=== PATIENT | female | born 1955 | race Caucasian/White ===

== ENCOUNTER 2021-05-04 09:01 | Outpatient (CLI) | payer MEDICARE, SELFPAY ==
--- NOTE | ~2021-05-04 | MM_ITS ---
EXAMINATION: MM screening [facility] BI w stevo HISTORY: Screening mammogram TECHNIQUE: Craniocaudal and mediolateral oblique 3-D tomosynthesis images were obtained and synthetic 2-D images were generated. CAD analysis was submitted and interpreted. COMPARISON: 10/23/2018, 09/25/2017, 09/18/2017 BREAST PARENCHYMAL COMPOSITION: There are scattered areas of fibroglandular density. FINDINGS: RIGHT BREAST: There are indeterminate calcifications anterior third of inner breast. LEFT BREAST: There is no suspicious mass, calcification, or architectural distortion to suggest malig yamile. There has been no significant interval change. IMPRESSION: 1. Indeterminate right breast calcifications. 2. Magnification views are recommended. BI-RADS Category 0: Incomplete: Needs additional imaging evaluation. Reviewed, dictated and finalized at location A.
== END 2021-05-04 09:02 | disposition home or self-care (01) ==
LOC: ANHIMG 09:03
PROVIDERS: PCP Nurse Practitioner Adult Health; Visit Provider Nurse Practitioner Adult Health
DX: Z12.31 Encounter for screening mammogram for malignant neoplasm of breast (principal); R92.8 Other abnormal and inconclusive findings on diagnostic imaging of breast
CPT/HCPCS: 77063; 77067

== ENCOUNTER 2021-05-17 11:28 | Outpatient (CLI) | payer MEDICARE, SELFPAY ==
--- NOTE | ~2021-05-17 | MM_ITS ---
EXAMINATION: MM diagnostic mammo unilat RT HISTORY: Right breast calcifications on screening mammogram TECHNIQUE: Additional views of the right breast were performed and synthetic 2-D images were generate d. CAD analysis was submitted and interpreted. COMPARISON: 05/04/2021, 10/23/2018 FINDINGS: There are coarse heterogeneous calcifications in a linear distribution at the 4:00 location in the anterior third of the breast between 2 cm and 5 cm from the nipple. IMPRESSION: 1. Indeterminate right breast calcifications. 2. Stereotactic right breast biopsy is recommended. BI-RADS category 4, suspicious findings. Reviewed, dictated and finalized at location A.
== END 2021-05-17 11:29 | disposition home or self-care (01) ==
PROVIDERS: PCP Nurse Practitioner Adult Health; Visit Provider Nurse Practitioner Adult Health
DX: R92.8 Other abnormal and inconclusive findings on diagnostic imaging of breast (principal)
CPT/HCPCS: 77065

== ENCOUNTER 2021-06-04 10:46 | Outpatient (CLI) | payer MEDICARE, SELFPAY ==
--- NOTE | ~2021-06-04 | DEXA_ITS ---
Bone Density Report Name: AVNI KIRKLAND Age: 66 Sex: Female Ethnicity: White Date of : 1955 Indication: postmenopausal; screening for osteoporosis; Referring Provider: LIN, ANNETTE Study: Bone densitometry was performed. Exam Date: June 04, 2021 Accession number: [id number] Bone Density: Region BMD T-score Z-score Classification AP Spine(L1-L4) 1.136 0.8 2.7 Normal Femoral Neck (Left) 0.696 -1.4 0.3 Osteopenia Total Hip (Left) 0.875 -0.6 0.8 Normal Femoral Neck (Right) 0.714 -1.2 0.4 Osteopenia Total Hip (Right) 0.919 -0.2 1.2 Normal Total Hip Mean 0.897 -0.4 1.0 Normal World Health Organization criteria for BMD impression classify patients as: Normal (T-score at or above -1.0), Osteopenia (T-score between -1.0 and -2.5), or Osteoporosis (T-score at or below -2.5). 10-year Fracture Risk(1): Major Osteoporotic Fracture 9.0% Hip Fracture 0.9% Reported Risk Factors: [place] (), Neck BMD=0.696, BMI=26.7 (1) FRAX(R) Version 3.08. Fracture probability calculated for an untreated patient. Fracture probability may be lower if the patient has received treatment. Previous Exams: Region Exam Age BMD T-score BMD Change BMD Change Date g/cm2 vs Baseline vs Previous AP Spine(L1-L4) 06/04/2021 66 1.136 0.8 0.014(1.3%) 0.014(1.3%) 08/19/2015 60 1.122 0.7 Total Hip(Left) 06/04/2021 66 0.875 -0.6 -0.029(-3.3%)* -0.029(-3.3%)* 08/19/2015 60 0.904 -0.3 Total Hip(Right) 06/04/2021 66 0.919 -0.2 -0.027(-2.8%) -0.027(-2.8%) 08/19/2015 60 0.946 0.0 *Denotes significance at 95% confidence level, LSC for AP Spine = 0.022 g/cm2, LSC for Total Hip = 0.027 g/cm2 Clinical Information Provided by Patient: Patient maximum height was 70 Menopause Age: 51 Drinks caffeinated beverages Onset of menses at age 11 Number of children 2 Impression: The patient has low bone mass, based on the Left Femoral Neck T-score. The patient has an estimated ten-year risk of hip fracture of 0.9% and an estimated ten-year risk of major fracture of 9%, based on the WHO FRAX algorithm. The BMD for the Total Hip(Left) decreased, changing by -3.3% since the last DXA exam. Discussion: BONE DENSITY IS LOW AT ONE OR MORE SKELETAL SITES. This patient's lowest T-score is low at one or more skeletal sites. It meets the World Health Organization's (WHO) criteria for ?low bone mass? (T-score between -1.0 and -2
== END 2021-06-04 10:47 | disposition home or self-care (01) ==
LOC: ANHIMG 10:51
PROVIDERS: PCP Nurse Practitioner Adult Health; Visit Provider Nurse Practitioner Adult Health
DX: Z78.0 Asymptomatic menopausal state (principal); M85.852 Other specified disorders of bone density and structure, left thigh; M85.851 Other specified disorders of bone density and structure, right thigh
CPT/HCPCS: 77080

== ENCOUNTER 2023-03-02 08:04 | Outpatient (CLI) | payer MEDICARE, SELFPAY ==
--- NOTE | ~2023-03-02 | US_ITS ---
Limited Abdominal Sonogram: Real-time sonographic imaging of the right upper quadrant was performed. Clinical History: Right upper quadrant pain Findings: The liver appears echogenic, with no evidence of mass lesion or bile duct dilatation. Main portal vein demonstrates normal direction of flow. The gallbladder is well distended, and appears no rmal with no evidence of gallstone or wall thickening. The common bile duct measures 3 mm. The visua lized pancreas, aorta, and IVC are unremarkable. Impression: Diffuse fatty infiltration of liver. Reviewed, dictated and finalized at location M. LRY SALES REPRESENTATIVE Impression: Diffuse fatty infiltration of liver.
--- NOTE | ~2023-03-02 | XR_ITS ---
EXAM: XR abdomen/kub 1V DATE: 03/02/2023 08:33 HISTORY: RUQ PAIN FOR SEVERAL MONTHS . COMPARISON: Ultrasound abdomen Limited 03/02/2023. FINDINGS: Clear lung bases. Normal bowel gas pattern. Enlarged liver. No abnormal abdominal calcific ation. Lumbar degenerative disc disease. Mild thoracolumbar scoliosis. Moderate osteitis pubis. Pelvi c phleboliths. IMPRESSION: Hepatomegaly. Reviewed, dictated and finalized at location K. GE KNOTTER IMPRESSION: Hepatomegaly.
== END 2023-03-02 08:05 | disposition home or self-care (01) ==
PROVIDERS: PCP Family Medicine; Visit Provider Family Medicine
DX: K76.0 Fatty (change of) liver, not elsewhere classified (principal)
CPT/HCPCS: 74018; 76705

== ENCOUNTER 2023-05-16 10:05 | Outpatient (CLI) | payer MEDICARE, SELFPAY ==
[2023-05-16 12:14] LABS: Alanine Aminotransferase 29 U/L (6-35); Albumin Level 4.3 g/dL (3.5-5.1); Alkaline Phosphatase 61 U/L (38-126); Aspartate Amino Transferase 38 U/L (14-36); Bilirubin,Total 1.2 mg/dL (0.2-1.3)
[2023-05-16 12:17] LABS: INR 0.9; Prothrombin Time 12.6 Seconds (11.1-14.7)
[2023-05-16 12:25] LABS: Iron 173 ug/dL (37-170)
[2023-05-16 12:37] LABS: Percent Iron Saturation 63 % (20-50)
[2023-05-19 10:56] LABS: Alpha-1-Antitrypsin, QN 131 mg/dL (83-199); Ceruloplasmin 29 mg/dL (18-53)
[2023-05-20 04:16] LABS: Hepatitis A Antibody Total Nonreactive (Nonreactive)
[2023-05-20 12:21] LABS: Actin Antibody (IgG) <20 U (<20)
[2023-05-20 15:58] LABS: GGT 21 U/L (3-65)
[2023-05-22 13:03] LABS: LKM 1 Antibody <=20.0 U (<=20.0)
[2023-05-22 20:52] LABS: Mitochondrial (M2) Ab (IgG) <=20.0 U (<=20.0)
[2023-05-26 14:47] LABS: ALT 23 U/L (6-29); Alpha-2-Macroglobulin 182 mg/dL (106-279); Apolipoprotein A1 229 mg/dL (101-198); Fibrosis Score 0.11; Fibrosis Stage F0; GGT 21 U/L (3-65); Haptoglobin 112 mg/dL (43-212); Necroinflammat Act Grade A0; Total Bilirubin 0.6 mg/dL (0.2-1.2)
== END 2023-05-16 10:06 | disposition home or self-care (01) ==
LOC: ANHLAB 10:11
PROVIDERS: PCP Family Medicine; Visit Provider Nurse Practitioner Family
DX: R74.01 Elevation of levels of liver transaminase levels (principal); K76.0 Fatty (change of) liver, not elsewhere classified
CPT/HCPCS: 36415; 80076; 81596; 82103; 82390; 82728; 82977; 83520; 83540; 83550; 85610; 86038; 86364; 86376; 86708

== ENCOUNTER 2023-05-30 07:00 | Outpatient (NON) | payer MEDICARE, SELFPAY | END 2023-05-30 07:01 | disposition home or self-care (01) | PROVIDERS: PCP Family Medicine; Visit Provider Internal Medicine Gastroenterology | DX: K20.0 Eosinophilic esophagitis (principal) | CPT/HCPCS: 88305 ==

== ENCOUNTER 2023-05-30 09:29 | Day surgery (SDC) | payer MEDICARE, SELFPAY ==
[2023-05-24 13:55] VITALS: BMI 27.8
[2023-05-25 12:11] VITALS: BMI 27.1
--- NOTE | 2023-05-30 07:43 | P.PNAN_ITS ---
Anes - Initial Pre Proc Eval Procedure: Operation Date: 05/30/23 12:30 Proposed Procedures p Esophagogastroduodenoscopy - Godwin Reese MD Date/Time: 05/30/23 07:43 Surgeon: Godwin Reese MD Pre Op Diagnosis: Right upper quadrant pain Patient Data Age: 68 Gender: F Height: 1.78 m Weight: 86 kg Allergies Allergy/AdvReac Type Severity Reaction Status Date / Time Sulfa (Sulfonamide Allergy Mild HIVES Verified 05/30/23 11:24 Antibiotics) Home Medications Medication Instructions Recorded Confirmed Type cholecalciferol (vitamin D3) 25 25 mcg PO WEEKLY 05/16/23 05/30/23 History mcg (1,000 unit) capsule cyanocobalamin (vitamin B-12) 1,000 mcg PO DAILY 05/16/23 05/30/23 History 1,000 mcg capsule Patient hx anesthesia problems: none Family hx anesthesia problems: none Results Review: All pre-operative results and documents have been reviewed as part of the pre- operative evaluation. [facility] Past Medical History Medical History (Updated 05/30/23 @ 11:42 by Larry Hartman DO) Elevated transaminase level Fatty liver History of breast cancer History of difficult intubation Right upper quadrant pain Surgical History Surgical History (Updated 05/30/23 @ 07:44 by Larry Hartman DO) History of appendectomy History of tubal ligation Family History Family History (System 05/18/21 @ 11:44 by Jewell Flood) Mother Diabetes mellitus Father Hypertension Family history of cardiovascular disease Father Hypertension Family history of chronic obstructive pulmonary disease Family history of coronary artery disease Sibling Hypertension Mother Family history of congenital heart disease Family history of coronary artery disease Family history of type 2 diabetes mellitus Other Family history of heart disease in male family member before age 55 Social History Social History (System 05/18/21 @ 11:44 by Jewell Flood) Smoking status: Never smoker Second hand tobacco smoke exposure: No Smoking end date: 02/19/74 Alcohol intake: current Substance use: never Substance use type: does not use Living arrangements: with family Spiritual care concerns: No Anes - Eval Final PreProcedure Day of Procedure 05/30/23 07:43 Patient weight: overweight Heart: regular rate and rhythm Lungs: clear to auscultation Airway: Mallampati scale class II Neurological: alert and oriented Last oral intake: >/= 8 hours ASA classification: II Emergent: no Anesthetic plan: proceed Anesthesia type and monitoring: general GIVS and standard monitoring Results Review: All pre-operative results and documents have been reviewed as part of the pre- operative evaluation. Informed Consent: The patient's anesthetic plan and its attendant risks and benefits were discussed with the patient/family/POA. Questions were solicited and answers provided to the satisfaction of the patient/family/POA.
[2023-05-30 11:26] VITALS: BP 158/102; PULSE 66; RESP 18; TEMP 36.3; O2SAT 99; BMI 27.5
--- NOTE | 2023-05-30 11:35 | WPDHPUPDATE1 ---
History and Physical Update Update Date/Time: 05/30/23 11:35 History and Physical has been reviewed, including an updated exam of the patient. There are NO changes in the patient's condition. Risks, benefits, and alternatives have been discussed and questions answered. Patient agrees to proceed with procedure.
[2023-05-30] MEDS: LACTATED RINGERS 1,000 ML 150 ML IV CONT (11:37)
[2023-05-30 12:17] VITALS: BP 141/89; PULSE 72; RESP 16; O2SAT 100
[2023-05-30 12:27] VITALS: BP 121/69; PULSE 70; RESP 16; O2SAT 100
[2023-05-30 12:37] VITALS: BP 137/89; PULSE 67; RESP 16; O2SAT 97
--- NOTE | 2023-05-30 12:45 | WPDANESPN ---
Anes - Prog Note Post-Op Date/Time: 05/30/23 12:45 Cardiovascular status: normal Respiratory status: normal Airway patency: baseline Mental status: baseline Post-Op hydration status: normal Vital Signs: Last Vital Signs Temp 36.3 C L 05/30/23 11:26 Pulse 72 05/30/23 12:17 Resp 16 05/30/23 12:17 BP 141/89 H 05/30/23 12:17 Pulse Ox 100 05/30/23 12:17 O2 Del Method Room Air 05/30/23 12:17 Pain Score (VAS): 0 I/O: Intake & Output 05/29/23 05/30/23 05/30/23 23:59 07:59 15:59 Intake Total 0 Balance 0 Post-procedural complaints: none Patient Feedback: Patient satisfied with anesthetic care. Other Findings: Patient vital signs back to baseline. Patient denies nausea and vomiting. Patient's pain under control. Patient OK for discharge.
== END 2023-05-30 13:00 | disposition home or self-care (01) ==
PROVIDERS: PCP Family Medicine; Visit Provider Internal Medicine Gastroenterology
PROC: 0DJ08ZZ Inspection of Upper Intestinal Tract, Via Natural or Artificial Opening Endoscopic (ICD-10-PCS; CPT 43235; principal; 2023-05-30 12:30)
DX: R10.11 Right upper quadrant pain (principal); K20.80 Other esophagitis without bleeding; K44.9 Diaphragmatic hernia without obstruction or gangrene
CPT/HCPCS: 43239

== ENCOUNTER 2023-06-04 18:02 | Emergency (ER) | payer MEDICARE, SELFPAY ==
--- NOTE | ~2023-06-04 | XR_ITS ---
EXAMINATION: XR humerus LT DATE: 06/04/2023 18:40 INDICATION: Left upper arm pain. Fall. TECHNIQUE: 2 views of left humerus were obtained. COMPARISON: None. FINDINGS: There is a spiral fracture of proximal humeral diaphysis. The distal fracture fragment demo nstrates 5 mm posterior displacement. There is mild osteoarthritis of acromioclavicular joint. IMPRESSION: 1. Spiral fracture of proximal humeral diaphysis. Reviewed, dictated and finalized at location E.
--- NOTE | ~2023-06-04 | CT_ITS ---
EXAMINATION: CT cervical spine wo con DATE: 06/04/2023 19:10 INDICATION: Head injury. Fall. TECHNIQUE: Computed tomography (CT) of the cervical spine was performed without intravenous contrast. Automated exposure control and iterative reconstruction technique were employed. The dose-length pro duct was 681.00 mGy-cm. COMPARISON: None FINDINGS: There is 2 mm retrolisthesis of C4 on C5. Vertebral body heights are normal. There is moder ately decreased disc height at C3-C4 and severely decreased disc height at C4-C5, C5-C6, and C6-C7. T he following disc levels are specifically discussed: C2-C3: There is no uncovertebral joint osteoarthritis. There is mild bilateral facet joint osteoarthr itis. There is no neural foraminal stenosis. There is no central canal stenosis. C3-C4: There is moderate bilateral uncovertebral joint osteoarthritis. There is mild bilateral facet joint osteoarthritis. There is mild left neural foraminal stenosis. There is mild central canal steno sis. C4-C5: There is severe bilateral uncovertebral joint osteoarthritis. There is mild bilateral facet cristy int osteoarthritis. There is mild bilateral neural foraminal stenosis. There is mild central canal st enosis. C5-C6: There is moderate right and severe left uncovertebral joint osteoarthritis. There is mild bila teral facet joint osteoarthritis. There is mild bilateral neural foraminal stenosis. There is mild ce ntral canal stenosis. C6-C7: There is severe bilateral uncovertebral joint osteoarthritis. There is mild bilateral facet cristy int osteoarthritis. There is mild bilateral neural foraminal stenosis. There is mild central canal st enosis. C7-T1: There is no uncovertebral joint osteoarthritis. There is moderate right and severe left facet joint osteoarthritis. There is mild left neural foraminal stenosis. There is no central canal stenosi s. IMPRESSION: 1. No fracture. 2. Severe cervical spondylosis. Reviewed, dictated and finalized at location E.
--- NOTE | ~2023-06-04 | CT_ITS ---
EXAMINATION: CT brain wo con DATE: 06/04/2023 19:09 INDICATION: Head injury. Fall. TECHNIQUE: Computed tomography (CT) of the head was performed without intravenous contrast. The mA wa s adjusted according to patient size. Iterative reconstruction technique was employed. The dose-lengt h product was 681.00 mGy-cm. COMPARISON: None FINDINGS: There are scattered areas of low attenuation in the cerebral white matter. There is no intr acranial hemorrhage, acute infarction, or abnormal intracranial mass lesion. The ventricles are dylan l in size. There is mild mucosal thickening in the paranasal sinuses. The mastoid air cells are dylan l. There are likely changes of ocular lens replacement surgeries. IMPRESSION: 1. Mild nonspecific cerebral white matter disease, which likely represents chronic small vessel ische dejah disease. Reviewed, dictated and finalized at location E. IMPRESSION: 1. 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
--- NOTE | ~2023-06-04 | XR_ITS ---
EXAMINATION: XR shoulder LT min 2V DATE: 06/04/2023 18:40 INDICATION: Left shoulder pain. Fall. TECHNIQUE: 3 views of left shoulder were obtained. COMPARISON: None. FINDINGS: There is a spiral fracture of proximal humeral diaphysis. The distal fracture fragment demo nstrates 12 mm posterior displacement and one cortical width lateral displacement. There is mild oste oarthritis of acromioclavicular joint. Glenohumeral joint is normal. IMPRESSION: 1. Spiral fracture of proximal left humeral diaphysis. Reviewed, dictated and finalized at location E.
[2023-06-04 18:04] VITALS: BP 128/76; PULSE 60; RESP 20; TEMP 36.4; O2SAT 96
--- NOTE | 2023-06-04 18:04 | ED.FALL ---
HPI - Fall General Chief Complaint: Extremity Injury, Upper <SARA Moya Last Filed: 06/04/23 18:14> Stated Complaint: fall with left arm injury <SARA Moya Last Filed: 06/04/23 18:14> Time Seen by Provider: 06/04/23 18:04 <SARA Moya Last Filed: 06/04/23 18:14> Focused HPI: Patient is 68-year-old female who presents the ED with report of a fall. Patient reports she tripped on her issues and fell in her kitchen just prior to arrival. Landed on her left side. She did hit her head and sustained a small abrasion to her left facial cheek. Denied LOC. Complains of pain to her left shoulder and upper arm. Denies numbness or tingling. Denies dizziness, lightheadedness, vision changes, chest pain, shortness of breath. Patient is not on any blood thinners. GENERAL: Well-appearing, well-nourished, and in no acute distress. HEAD: Normocephalic. Small contusion to L inferior periorbital region. No swelling. EYES: PERRL/EOMI, conjunctiva clear. ENT: Contusion/bite refugoi to L upper lateral lip. No active bleeding. CHEST: Clear to auscultation. ?No respiratory distress. HEART: Regular rate and rhythm.? MSK: Limited range of motion of left upper extremity. Diffuse tenderness throughout left shoulder/proximal upper arm. Sensation intact throughout left upper extremity. Equal sales research analyst strength bilaterally. Radial pulses 2+. NEURO: ?Alert and oriented x3. Patient screened in triage and initial orders placed.? ?Additional care and disposition to be based upon?diagnostic testing and treatment. <SARA Moya Last Filed: 06/04/23 18:14> Source: patient <SARA Moya Last Filed: 06/04/23 18:14> Mode of arrival: ambulatory <SARA Moya Last Filed: 06/04/23 18:14> Limitations: no limitations <SARA Moya Last Filed: 06/04/23 18:14> History of Present Illness HPI Narrative: hpi as per mse. <Rachna De La Cruz III DO - Last Filed: 06/04/23 23:10> Related Data Home Medications: Home Medications Medication Instructions Recorded Confirmed cholecalciferol (vitamin D3) 25 25 mcg PO WEEKLY 05/16/23 05/30/23 mcg (1,000 unit) capsule cyanocobalamin (vitamin B-12) 1,000 mcg PO DAILY 05/16/23 05/30/23 1,000 mcg capsule <SARA Moya Last Filed: 06/04/23 18:14> Allergies/Adverse Reactions: Allergies Allergy/AdvReac Type Severity Reaction Status Date / Time Sulfa (Sulfonamide Allergy Mild HIVES Verified 06/04/23 19:59 Antibiotics) <SARA Moya Last Filed: 06/04/23 18:14> Review of Systems Review of Systems: All systems reviewed & are unremarkable except as noted in HPI and below <Rachna De La Cruz III DO - Last Filed: 06/04/23 23:10> PMFSH Past Medical History Medical History: Medical History (Updated 06/04/23 @ 20:11 by Rachna De La Cruz III, DO) Elevated transaminase level Fatty liver History of breast cancer History of difficult intubation Right upper quadrant pain <SARA Moya Last Filed: 06/04/23 18:14> Surgical History Surgical History: Surgical History (Updated 05/30/23 @ 07:44 by Larry Hartman DO) History of appendectomy History of tubal ligation <SARA Moya Last Filed: 06/04/23 18:14> Family History Family History: Family History (System 05/18/21 @ 11:44 by Jewell Flood) Mother Diabetes mellitus Father Hypertension Family history of cardiovascular disease Father Hypertension Family history of chronic obstructive pulmonary disease Family history of coronary artery disease Sibling Hypertension Mother Family history of congenital heart disease Family history of coronary artery disease Family history of type 2 diabetes mellitus Other Family history of heart disease in male family member before age 55 <Wanda Henderson
[2023-06-04] MEDS: ONDANSETRON HCL ODT 4 MG TABLET PO (18:13)
[2023-06-04] MEDS: ACETAMINOPHEN 500 MG TABLET 1000 MG PO (18:13)
[2023-06-04 19:57] VITALS: PULSE 62; RESP 17; O2SAT 99
== END 2023-06-04 21:18 | disposition home or self-care (01) ==
PROVIDERS: Emergency Provider Emergency Medicine; PCP Family Medicine
DX: S42.342A Displaced spiral fracture of shaft of humerus, left arm, initial encounter for closed fracture (principal); Z85.3 Personal history of malignant neoplasm of breast; Z87.891 Personal history of nicotine dependence; W01.0XXA Fall on same level from slipping, tripping and stumbling without subsequent striking against object, initial encounter
CPT/HCPCS: 70450; 72125; 73030; 73060; 99284; A4565; A9270

== ENCOUNTER 2023-06-11 19:23 | Emergency (ER) | payer MEDICARE, SELFPAY ==
[2023-06-11] VITALS (7 sets, daily range): BP systolic 146–168; BP diastolic 73–110; PULSE 65–86; RESP 15–20; TEMP 36.4; O2SAT 94–98
--- NOTE | ~2023-06-11 | XR_ITS ---
EXAM: XR humerus LT DATE: 06/11/2023 20:47 HISTORY: pain, recent fx . COMPARISON: 06/07/2023, images only. FINDINGS: Normal mineralization. Spiral fracture of the proximal left humerus with new, greater than one shaft width lateral displacement, measuring 3.1 cm, new one shaft width posterior displacement, and new 1.4 cm overlap. No new acute fracture or dislocation. No lytic or blastic lesion. Joint space s are maintained. No erosion or periosteal change. Soft tissue swelling about the fracture site. IMPRESSION: Spiral proximal left humeral fracture with significant interval alignment change, now dem onstrating significant lateral and posterior displacement and 1.4 cm overlap. Reviewed, dictated and finalized at location K. IMPRESSION: Spiral proximal left humeral fracture with significant interval ali gnment change, now demonstrating significant lateral and posterior displacement and 1.4 cm overlap.
--- NOTE | 2023-06-11 19:52 | PC.NURSE ---
EDP Dr. Foss made aware of patient's new onset of symptoms.
[2023-06-11] MEDS: HYDROmorphone HCL INJ (*CRX) 1 MG/ML SYR IM (21:09)
[2023-06-11 21:21] LABS: Basophils Percent Auto 0.3 % (0.2-1.2); Eosinophils Absolute Auto 0.2 K/mm3 (0-0.3); Eosinophils Percent Auto 1.6 % (0-4.4); Hemoglobin 11.6 g/dL (12.0-15.0); Immature Granulocyte Absolute 0.03 K/mm3 (0.00-0.031); Immature Granulocyte Percent A 0.3 % (0-0.5); Lymphocytes Absolute Auto 1.18 K/mm3 (0.9-3.2); Lymphocytes Percent Auto 12.7 % (18.3-44.2); Mean Corpuscular HGB Conc 33.1 g/dl (32-36); Mean Corpuscular Hemoglobin 32.8 pg (26-34); Mean Corpuscular Volume 98.9 fl (80-100); Mean Platelet Volume 10.5 fl (7.4-10.4); Monocytes Absolute Auto 0.8 K/mm3 (0.1-0.6); Monocytes Percent Auto 8.2 % (2.6-8.5); Neutrophils Absolute Auto 7.2 K/mm3 (1.3-6.7); Neutrophils Percent Auto 76.9 % (45.5-73.1); Platelet Count Result 209 k/mm3 (150-375); Red Blood Count 3.54 M/mm3 (4.2-5.4); Red Cell Distribution Width 13.3 % (11.5-14.5); White Blood Count 9.3 K/mm3 (4.5-10.0)
[2023-06-11 21:32] LABS: Alanine Aminotransferase 18 U/L (6-35); Alkaline Phosphatase 53 U/L (38-126); Anion Gap 7 mmol/L (4-12); Aspartate Amino Transferase 26 U/L (14-36); Bilirubin,Total 1.1 mg/dL (0.2-1.3); Blood Urea Nitrogen 15 mg/dL (7-17); Carbon Dioxide 24 mmol/L (22-30); Chloride 107 mmol/L (98-107); Estimated CRCL calculation 71 ml/min; Estimated Glomerular Filt Rate > 60; Glucose 104 mg/dL (65-110); Potassium 3.9 mmol/L (3.4-5.0); Sodium 138 mmol/L (137-145)
[2023-06-11 21:34] LABS: Partial Thromboplastin Time 30.9 Seconds (22.3-36.8)
[2023-06-11 21:39] LABS: D Dimer 2.82 ug/mL (<0.48)
--- NOTE | 2023-06-11 22:52 | ED.GENADULT ---
HPI - General Adult General Chief complaint: Extremity Injury, Upper Stated complaint: fractured humerous - bicahlo - new pain increase Time Seen by Provider: 06/11/23 20:22 History of Present Illness HPI narrative: Patient 68-year-old female who presents emergency department chief complaint of pain in the left upper extremity and swelling in the left upper extremity. Patient reports she had a fall and fracture of her left upper extremity in the proximal humerus on patient was seen by Orthopedics and the fracture was well aligned at that time patient states that she felt movement in her arm and now is having exquisite pain and noticed that she is also having swelling distal to the injury. The patient reports no change in color of her hand no numbness or tingling Related Data Home Medications Medication Instructions Recorded Confirmed cholecalciferol (vitamin D3) 25 25 mcg PO WEEKLY 05/16/23 06/07/23 mcg (1,000 unit) capsule cyanocobalamin (vitamin B-12) 1,000 mcg PO DAILY 05/16/23 06/07/23 1,000 mcg capsule Allergies Allergy/AdvReac Type Severity Reaction Status Date / Time Sulfa (Sulfonamide Allergy Mild HIVES Verified 06/07/23 10:08 Antibiotics) Review of Systems Review of Systems: A 10 system review of systems was completed on the patient and is negative except for what is stated in the HPI. Nursing and ancillary documentation was reviewed. [facility] Past Medical History Medical History Elevated transaminase level Fatty liver History of breast cancer History of difficult intubation Right upper quadrant pain Surgical History Surgical History History of appendectomy History of tubal ligation Family History Family History Mother Diabetes mellitus Father Hypertension Family history of cardiovascular disease Father Hypertension Family history of chronic obstructive pulmonary disease Family history of coronary artery disease Sibling Hypertension Mother Family history of congenital heart disease Family history of coronary artery disease Family history of type 2 diabetes mellitus Other Family history of heart disease in male family member before age 55 Social History Social History Smoking status: Former smoker Second hand tobacco smoke exposure: No Smoking end date: 02/19/74 Alcohol intake: current Substance use: never Substance use type: does not use Living arrangements: with family Occupation/Education: retired 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[employer] Gender identity (if verbalized by the patient): Female Spiritual care concerns: No Exam Narrative: GENERAL: Well-appearing, well-nourished, and in no acute distress. HEAD: Normocephalic, atraumatic. EYES: PERRLA and EOMI. ENT: Nares clear, no rhinorrhea or epistaxis. Mucous membranes moist. NECK: Supple. CHEST: Clear to auscultation. No respiratory distress. HEART: Regular rate and rhythm. No murmur heard. Normal peripheral pulses. ABDOMEN: Soft, nontender, nondistended, normal active bowel sounds. EXTREMITIES: Normal range of motion limited range of motion left upper extremity there is edema present on the left forearm are intact radial and ulnar pulses present compartments are soft. No edema. SKIN: Warm, dry, no rash. NEURO: No focal deficits. Alert and oriented x3. PSYCH: Normal mood and affect. Course Vital Signs Vital signs: Vital Signs Temperature 36.4 C 06/11/23 19:25 Pulse Rate 86 06/11/23 19:25 Respiratory Rate 18 06/11/23 19:25 Blood Pressure 157/110 H 06/11/23 19:25 Pulse Oximetry 97 06/11/23 19:25 Oxygen Delivery Room Air 06/11/23 19:25 Temperature 36.4 C 06/11/23
--- NOTE | 2023-06-11 22:55 | PC.NURSE ---
Report given to Micha gamez [facility]
--- NOTE | 2023-06-11 23:00 | PC.NURSE ---
Pt reports hx of R sided mastectomy with lymph node removal, in 2020, unable to use that arm for blood pressures, etc.
[2023-06-11 23:10] LABS: Creatine Kinase 195 U/L (30-135)
--- NOTE | 2023-06-11 23:16 | PC.NURSE ---
Pt reports increase in pain. made aware. Dr. Pipo RUSSELL for 1mg dilaudid IVP stat.
[2023-06-11] MEDS: HYDROmorphone HCL INJ (*CRX) 1 MG/ML SYR IV PUSH (23:20)
[2023-06-11 23:30] LABS: Lactic Acid Reflex 1.5 mmol/L (0.7-2.0)
== END 2023-06-11 23:48 | disposition short-term general hospital (02) ==
PROVIDERS: Emergency Provider Emergency Medicine; PCP Family Medicine
DX: S42.342A Displaced spiral fracture of shaft of humerus, left arm, initial encounter for closed fracture (principal); Z85.3 Personal history of malignant neoplasm of breast; Z87.891 Personal history of nicotine dependence; W19.XXXA Unspecified fall, initial encounter
CPT/HCPCS: 36415; 73060; 80053; 82550; 83605; 85025; 85380; 85610; 85730; 96372; 96374; 99285; J1170

== ENCOUNTER 2024-03-28 00:21 | Day surgery (SDC) | payer MEDICARE, SELFPAY ==
[2024-03-21 15:00] VITALS: BMI 27.2
--- OUTSIDE RECORDS SUMMARY | 2024-03-28 00:24 | XMS_ITS | Data Portability ---
Author Organization [place] [employer], Main Office Address [address] [place] [address] Care Team Providers Care Instructor Correspondence [employer] Name Role Phone MASON AMIN Primary Care Provider Assessment Encounter Date Assessment Date Assessment LastModified by Organization Details LastModified Time 10/09/2023 10/09/2023 68 yo F with - HLD, new - VIT B12 DEFICIENCY - VIT D DEFICIENCY - ELEVATED LFTs, mild - HEPATOMEGALY - RUQ PAIN, chronic - VISUAL IMPAIRMENT - B/L HEARING LOSS, chronic - H/O RT BREAST CANCER - H/O RT MASTECTOMY (08/09) CT head & C-spine wo: 06/04/23. Annual labs: 03/05/23. US abdo: 03/02/23. X-ray abdo: 03/02/23. Wt: 189(10/09/23) D/w pt in detail about her conditions, recent labs & imagines and further plan of care. Pt declined for any statin at this time. Meds as directed. Diet and exercise explained in detail. BP diary education given and call us if any concerns. Fall risk precautions explained. F/u with GI as per schedule. Cont f/u with Breast surgeon at [place] as per schedule. HM: WWE - Several years ago. Normal as per pt. Mammo - 08/11, normal as per pt. Cont f/u with breast surgeon as per schedule. EGD - 05/12, normal as per pt. Cont f/u with GI as per schedule. Colonoscopy - 14-15 yrs ago, normal as per pt. Cologuard 04/26/21 - neg. DEXA - 2021, normal as per pt. Pt wants to do it next year. Flu - 12/11. Tdap, Pneumo, Shingrix - At pharmacy/HD. F/u in 2 months. Lipids before next visit. Annual labs in 03/15. [email or web address] Not available 10/09/2023 14:32:51 11/27/2023 11/27/2023 68 yo F with - WT LOSS PROGRAM - HLD (diet controlled) - VIT B12 DEFICIENCY - VIT D DEFICIENCY - ELEVATED LFTs, mild - HEPATOMEGALY - RUQ PAIN, chronic - VISUAL IMPAIRMENT - B/L HEARING LOSS, chronic - H/O RT BREAST CANCER - H/O RT MASTECTOMY (08/09) CT head & C-spine wo: 06/04/23. Annual labs: 03/05/23. US abdo: 03/02/23. X-ray abdo: 03/02/23. Wt: 189(10/09/23) - 195(11/27/23) D/w pt in detail about her conditions, recent labs & imagines and further plan of care. Pt declined for any statin at this time. Meds as directed. Diet and exercise explained in detail. BP diary education given and call us if any concerns. Fall risk precautions explained. F/u with GI as per schedule. Cont f/u with Breast surgeon at [place] as per schedule. HM: WWE - Several years ago. Normal as per pt. Mammo - 08/11, normal as per pt. Cont f/u with breast surgeon as per schedule. EGD - 05/12, normal as per pt. Cont f/u with GI as per schedule. Colonoscopy - 14-15 yrs ago, normal as per pt. Cologuard 04/26/21 - neg. DEXA - 2021, normal as per pt. Pt wants to do it next year. Flu - 11/27/23. Tdap, Pneumo, Shingrix - At pharmacy/HD. F/u in 2 months. Annual labs in 03/15. [email or web address] Not available 11/27/2023 14:41:36 01/28/2024 01/28/2024 68 yo F with - WT LOSS PROGRAM - HLD (diet controlled) - VIT B12 DEFICIENCY - VIT D DEFICIENCY - ELEVATED LFTs, mild - HEPATOMEGALY - RUQ PAIN, chronic - VISUAL IMPAIRMENT - B/L HEARING LOSS, chronic - H/O RT BREAST CANCER - H/O RT MASTECTOMY (08/09) CT head & C-spine wo: 06/04/23. Annual labs: 03/05/23. US abdo: 03/02/23. X-ray abdo: 03/02/23. Wt: 189(10/09/23) - 195(11/27/23) - 190(01/28/24) D/w pt in detail about her conditions, recent labs & imagines and further plan of care. Pt declined for any statin at this time. Meds as directed. Diet and exercise explained in detail. BP diary education given and call us if any concerns. Fall risk precautions explained. F/u with GI as per schedule. Cont f/u with Breast surgeon at [place] as per schedule. HM: WWE - Several years ago. Normal as per pt. Mammo - 08/11, normal as per pt. Cont f/u with breast surgeon as per schedule. EGD - 05/12, normal as per pt. Cont f/u with GI as per schedule. Colonoscopy - 14-15 yrs ago, normal as per pt. Cologuard 04/26/21 - neg. DEXA - 2021, normal as per pt. Pt wants to do it next year. Flu - 11/27/23. Tdap, Pneumo, Shingrix - At pharmacy/HD. F/u in 2 months. Annual labs in 03/15. [email or web address] Not available 01/28/2024 11:08:05 03/05/2024 03/05/2024 69 yo F with - WELL ADULT VISIT - WT LOSS PROGRAM - HLD (diet controlled) - VIT B12 DEFICIENCY - VIT D DEFICIENCY - ELEVATED LFTs, mild - HEPATOMEGALY - RUQ PAIN, chronic - VISUAL IMPAIRMENT - B/L HEARING LOSS, chronic - H/O RT BREAST CANCER - H/O RT MASTECTOMY (08/09) CT head & C-spine wo: 06/04/23. Annual labs: 03/05/23. US abdo: 03/02/23. X-ray abdo: 03/02/23. Wt: 189(10/09/23) - 195(11/27/23) - 190(01/28/24) - 190(03/05/24) D/w pt in detail about her conditions, recent labs & imagines and further plan of care. Will do routine labs. Pt declined for any statin at this time. Meds as directed. Diet and exercise explained in detail. BP diary education given and call us if any concerns. Fall risk precautions explained. F/u with GI as per schedule. Cont f/u with Breast surgeon at [place] as per schedule. Cont f/u with Ophtho as per schedule. HM: WWE - Several years ago. Normal as per pt. Pt declined. Mammo - 07/12, normal as per pt. Cont f/u with breast surgeon as per schedule. EGD - 05/12, normal as per pt. Cont f/u with GI as per schedule. Colonoscopy - 14-15 yrs ago, normal as per pt. Cologuard 04/26/21 - neg. DEXA - 2021, normal as per pt. Ordered. Flu - 11/27/23. Tdap, Pneumo, Shingrix - At pharmacy/HD. F/u in 2-3 weeks. Annual labs in 03/16. [email or web address] Not available 03/05/2024 10:50:06 03/26/2024 03/26/2024 69 yo F with - HLD, uncontrolled - VIT B12 DEFICIENCY - VIT D DEFICIENCY - ELEVATED LFTs, resolved - HEPATOMEGALY - RUQ PAIN, chronic - VISUAL IMPAIRMENT - B/L HEARING LOSS, chronic - H/O RT BREAST CANCER - H/O RT MASTECTOMY (08/09) Annual labs: 03/05/24. CT head & C-spine wo: 06/04/23. Annual labs: 03/05/23. US abdo: 03/02/23. X-ray abdo: 03/02/23. Wt: 189(10/09/23) - 195(11/27/23) - 190(01/28/24) - 190(03/05/24) - 188(03/26/24) [Stop] D/w pt in detail about her conditions, recent labs & imagines and further plan of care. All meds verified with pt. Meds as directed. Diet and exercise explained in detail. BP diary education given and call us if any concerns. Fall risk precautions explained. Cont f/u with GI as per schedule. Cont f/u with Breast surgeon at [place] as per schedule. Cont f/u with Ophtho as per schedule. HM: WWE - Several years ago. Normal as per pt. Pt declined. Mammo - 07/12, normal as per pt. Cont f/u with breast surgeon as per schedule. EGD - 05/12, normal as per pt. Cont f/u with GI as per schedule. Colonoscopy - 14-15 yrs ago, normal as per pt. Cologuard 03/03/24, positive. Referred to GI. DEXA - 2021, normal as per pt. Ordered. Flu - 11/27/23. Tdap, Pneumo, Shingrix - At pharmacy/HD. F/u in 3 months. Lipids in 07/13. Annual labs in 03/16. [email or web address] Not available 03/26/2024 10:17:22 Plan of Treatment Reminders Order Date Submit Date Provider Last Modified By Organization Details Last Modified Time Details Appointments Follow Up 15 2024 09:15A Nile Amin MD Not available Not available Not available Lab lipid panel, serum 2023 024 [email or web address] [facility] (Lab), [address] [place], [address], 03/06/2024 14:48:27 vitamin B12 + folate, serum or blood [address] (Lab), [address] [place], [address], 03/05/2024 12:11:49 HbA1c (hemoglob in A1c), blood [address] (Lab), [address] [place], [address], 03/05/2024 12:11:19 vitamin D, 25-hydrox y, total, serum [address] (Lab), [address] [place], [address], 03/05/2024 12:12:11 noninvasi ve colorecta l cancer DNA + occult blood screening , QL, stool 2024 025 [email or web address] [facility] (Cologuard Orders Only), [address], [address], [place], [address], 03/05/2024 10:42:13 lipid panel, serum [address] (Lab), [address] [place], [address], 03/05/2024 12:14:39 TSH, serum or plasma [address] (Lab), [address] [place], [address], 03/05/2024 12:14:06 CBC w/ auto diff [address] (Lab), [address] [place], [address], 03/05/2024 12:13:30 CMP, serum or plasma [address] (Lab), [address] [place], [address], 03/05/2024 12:13:10 urinalysi s complete, reflex culture [address] (Lab), [address] [place], [address], 03/05/2024 12:12:43 lipid panel, serum [email or web address] (Lab), [address] [place], [address], 03/26/2024 10:10:13 Referral None recorded. Procedures None recorded. Surgeries None recorded. Imaging DEXA - Please call pt to schedule 2024 025 [email or web address], [address], [place], [address], 03/05/2024 11:15:26 Medication Orders phentermi ne 15 mg capsule [id number] [id number], [address], [place], [place], [id number], 03/05/2024 10:37:32 ergocalci ferol (vitamin D2) 1,250 mcg (50,000 unit) capsule 2023 024 [facility] #29645, [address], [place], [place], [id number], 10/09/2023 14:26:23 phentermi ne 30 mg capsule [id number] [facility]73164, [address], [place], [place], [id number], 03/26/2024 10:06:10 ergocalci ferol (vitamin D2) 1,250 mcg (50,000 unit) capsule 2023 024 [facility] #61999, [address], [place], [place], [id number], 11/27/2023 14:39:41 phentermi ne 30 mg capsule [email or web address] [place] [address] [facility] #90192, [address], [place], [place], [id number], 03/26/2024 10:06:10 ergocalci ferol (vitamin D2) 1,250 mcg (50,000 unit) capsule [id number] [place] [address] [facility] #14368, [address], [place], [place], [id number], 01/28/2024 11:06:33 phentermi ne 37.5 mg tablet 2024 025 [email or web address] [facility] #74588, [address], [id number], 03/26/2024 10:15:41 ergocalci ferol (vitamin D2) 1,250 mcg (50,000 unit) capsule 2024 025 [facility] #89727, [address] [facility] [address] [place] [address], [id number], 03/26/2024 10:10:18 rosuvasta tin 5 mg tablet 2024 025 [facility] #82472, [address], [id number], 03/26/2024 10:10:21 Patient TargetsNo targets recorded. Patient Instructions Encounter Date Encounter Id Patient Instructions Last Modified By Organization Details Last Modified Time 11/27/2023 [id number] high cholesterol : care instructions [email or web address] Not available 11/27/2023 14:36:36 01/28/2024 [id number] high cholesterol : care instructions [email or web address] Not available 01/28/2024 11:05:23 03/05/2024 [id number] high cholesterol : care instructions Not available 03/05/2024 10:42:12 03/26/2024 [id number] high cholesterol : care instructions [email or web address] Not available 03/26/2024 10:10:13 Reason for Referral None Reported. Results Created Date Observation Date Name Description Value Unit Range Abnormal Flag Note LastModifiedBy Organization Detail LastModifiedTime 03/04/1903/04/2024 COLOG UARD cologuard result CANCEL LED - ORDER D not applic able Not Available [facility] (Cologuard Orders Only) [address], [place], [address], 03/04/2024 11:16:59 03/03/19 25 03/03/2024 COLOG UARD cologuard result reportable POSITI VE negati ve abnormal POSIT MERCEDES TEST RESUL T. A posit mercedes Colog uard resul t shoul d be follo wed with a colon oscop y or visua l exami natio n of the colon . The dylan l value (refe rence range ) for this assay is negat mercedes. TEST DESCR IPTIO N: [place] site algor ithmi c pratibha sis of stool DNA-b iomar kers with hemog lobin immun oassa y. Quant itati ve value s of indiv idual bioma rkers are not repor table and are not assoc iated with indiv idual bioma rker resul t refer ence range s. Colog uard is inten ded for color ectal cance r scree frandy of adult s of eithe r sex, 45 years or older , who are at [facility] for color ectal cance r (CRC) . Colog uard has been appro bailee for use by the [place]. FDA. The perfo rmanc e of Colog uard was estab lishe d in a cross secti onal study of [facility] adult s aged 50-84 . Colog uard perfo rmanc e in patie nts ages 45 to 49 years was estim ated by toby-g pablito pratibha sis of near- age group s. Colon oscop ies perfo rmed for a posit mercedes resul t may find as the most clini uziel signi fican t lesio n: color ectal cance r [4.0% ], advan dejon adeno ma (incl uding sessi le sonya bryan polyp s great er than or equal to 1cm diame ter) [20%] or non- advan dejon adeno ma [31%] ; or no color ectal neopl dorian [45%] . These estim ates are deriv ed from a prosp ectiv e cross -sect ional scree frandy study of ,00 0 indiv idual s at [facility] risk for color ectal cance r who were scree lesia with both Colog uard and colon oscop y. (Luis Glasgow al, N Engl J Med 2014; 370(1 4):12 86-12 97.) Colog uard may produ ce a false negat mercedes or false posit mercedes resul t (no color ectal cance r or preca ncero us polyp prese nt at colon oscop y follo w up). A negat mercedes Colog uard test resul t does not guara ntee the absen ce of CRC or advan dejon adeno ma (pre- cance r). The curre nt Colog uard scree frandy inter harry is every 3 years . (Amer ican Cance r Socie ty and U.S. Multi -Soci ety Task Force ). Colog uard perfo rmanc e data in a 10,00 0 patie nt pivot al study using colon oscop y as the refer ence metho d can be acces sed at the follo wing locat ion: www.e xactl abs.c om/re sults . Addit ional descr iptio n of the Colog uard test proce ss, warni ngs and preca ution s can be found at www.c ologu shivani.c om. Not Available [facility] (Cologuard Orders Only) [address], [place], [address], 03/13/2024 10:34:45 03/05/19 25 03/05/2024 URINA LYSIS COMPL ETE/I RIS W/RFX color YELLOW Not Available [facility] (Lab) [address] [place], [address], 03/05/2024 19:13:31 03/05/19 25 03/05/2024 URINA LYSIS COMPL ETE/I RIS W/RFX appear TURBID abnormal Not Available [facility] (Lab) [address] [place], [address], 03/05/2024 19:13:31 03/05/19 25 03/05/2024 URINA LYSIS COMPL ETE/I RIS W/RFX specific gravity 1.022 1.001- 1.030 Not Available [facility] (Lab) [address] [place], [address], 03/05/2024 19:13:31 03/05/19 25 03/05/2024 URINA LYSIS COMPL ETE/I RIS W/RFX pH 7.0 pH_un its 5.0-9. 0 Not Available [facility] (Lab) [address] [place], [address], 03/05/2024 19:13:31 03/05/19 25 03/05/2024 URINA LYSIS COMPL ETE/I RIS W/RFX leukocytes NEGATI VE ric/u L negati ve- Not Available [facility] (Lab) [address] [place], [address], 03/05/2024 19:13:31 03/05/19 25 03/05/2024 URINA LYSIS COMPL ETE/I RIS W/RFX nitrite NEGATI VE negati ve- Not Available [facility] (Lab) [address] [place], [address], 03/05/2024 19:13:31 03/05/19 25 03/05/2024 URINA LYSIS COMPL ETE/I RIS W/RFX protein 10 mg/dL negati ve- abnormal Not Available [facility] (Lab) [address] [place], [address], 03/05/2024 19:13:31 03/05/19 25 03/05/2024 URINA LYSIS COMPL ETE/I RIS W/RFX glucose NORMAL mg/dL normal - Not Available [facility] (Lab) [address] [place], [address], 03/05/2024 19:13:31 03/05/19 25 03/05/2024 URINA LYSIS COMPL ETE/I RIS W/RFX ketones NEGATI VE mg/dL negati ve- Not Available [facility] (Lab) [address] [place], [address], 03/05/2024 19:13:31 03/05/19 25 03/05/2024 URINA LYSIS COMPL ETE/I RIS W/RFX urobilinogen NORMAL mg/dL normal - Not Available [facility] (Lab) [address] [place], [address], 03/05/2024 19:13:31 03/05/19 25 03/05/2024 URINA LYSIS COMPL ETE/I RIS W/RFX bilirubin NEGATI VE mg/dL negati ve- Not Available [facility] (Lab) [address] [place], [address], 03/05/2024 19:13:31 03/05/1903/05/2024 URINA LYSIS COMPL ETE/I RIS W/RFX blood NEGATI VE mg/dL negati ve- Not Available [facility] (Lab) [address] [place], [address], 03/05/2024 19:13:31 03/05/19 25 03/05/2024 URINA LYSIS COMPL ETE/I RIS W/RFX white blood cells 0-8 /i??h pfi?? 0-8 Not Available [facility] (Lab) [address] [place], [address], 03/05/2024 19:13:31 03/05/19 25 03/05/2024 URINA LYSIS COMPL ETE/I RIS W/RFX red blood cells 0-4 /i??h pfi?? 0-4 Not Available [facility] (Lab) [address] [place], [address], 03/05/2024 19:13:31 03/05/19 25 03/05/2024 URINA LYSIS COMPL ETE/I RIS W/RFX bacteria NONE Not Available [facility] (Lab) [address] [place], [address], 03/05/2024 19:13:31 03/05/19 25 03/05/2024 URINA LYSIS COMPL ETE/I RIS W/RFX mucous FEW /i??l pfi?? abnormal Not Available [facility] (Lab) [address] [place], [address], 03/05/2024 19:13:31 03/05/19 25 03/05/2024 URINA LYSIS COMPL ETE/I RIS W/RFX squamous epithelial PACKED FIELD /i??l pfi?? abnormal Not Available [facility] (Lab) [address] [place], [address], 03/05/2024 19:13:31 03/05/19 25 03/05/2024 CBC/C OMPLE TE BLD COUNT W/DIF F white blood cells 4.8 x10'3 /uL 4.2-10 .8 Not Available [facility] (Lab) [address] [place], [address], 03/05/2024 19:17:09 03/05/19 25 03/05/2024 CBC/C OMPLE TE BLD COUNT W/DIF F red blood cells 4.64 x10'6 /uL 3.80-5 .20 Not Available [facility] (Lab) [address] [place], [address], 03/05/2024 19:17:09 03/05/19 25 03/05/2024 CBC/C OMPLE TE BLD COUNT W/DIF F hemoglobin 15.8 g/dL 12.0-1 5.6 high Not Available [facility] (Lab) [address] [place], [address], 03/05/2024 19:17:09 03/05/19 25 03/05/2024 CBC/C OMPLE TE BLD COUNT W/DIF F hematocrit 45.2 % 35.7-4 5.7 Not Available [facility] (Lab) [address] [place], [address], 03/05/2024 19:17:09 03/05/1903/05/2024 CBC/C OMPLE TE BLD COUNT W/DIF F mean red cell volume 97.4 fL 82.0-9 9.0 Not Available [facility] (Lab) [address] [place], [address], 03/05/2024 19:17:09 03/05/1903/05/2024 CBC/C OMPLE TE BLD COUNT W/DIF F mean red cell hemoglobin 34.1 pg 27.0-3 3.0 high Not Available [facility] (Lab) [address] [place], [address], 03/05/2024 19:17:09 03/05/1903/05/2024 CBC/C OMPLE TE BLD COUNT W/DIF F mean RBC HGB concentratio n 35.0 g/dL 31.0-3 6.0 Not Available [facility] (Lab) [address] [place], [address], 03/05/2024 19:17:09 03/05/1903/05/2024 CBC/C OMPLE TE BLD COUNT W/DIF F red cell distribution width 12.3 % 11.8-1 5.5 Not Available [facility] (Lab) [address] [place], [address], 03/05/2024 19:17:09 03/05/1903/05/2024 CBC/C OMPLE TE BLD COUNT W/DIF F platelets 216 x10'3 /uL 150-40 0 Not Available [facility] (Lab) [address] [place], [address], 03/05/2024 19:17:09 03/05/1903/05/2024 CBC/C OMPLE TE BLD COUNT W/DIF F mean platelet volume 10.6 fL 9.0-12 .4 Not Available [facility] (Lab) [address] [place], [address], 03/05/2024 19:17:09 03/05/1903/05/2024 CBC/C OMPLE TE BLD COUNT W/DIF F neutrophils 41.9 % 39.0-7 2.0 Not Available [facility] (Lab) [address] [place], [address], 03/05/2024 19:17:09 03/05/1903/05/2024 CBC/C OMPLE TE BLD COUNT W/DIF F lymphocytes 43.0 % 16.0-4 7.0 Not Available [facility] (Lab) [address] [place], [address], 03/05/2024 19:17:09 03/05/1903/05/2024 CBC/C OMPLE TE BLD COUNT W/DIF F monocytes 10.8 % 5.0-12 .0 Not Available [facility] (Lab) [address] [place], [address], 03/05/2024 19:17:03/05/1903/05/2024 CBC/C OMPLE TE BLD COUNT W/DIF F eosinophils 3.5 % 1.0-7. 0 Not Available [facility] (Lab) [address] [place], [address], 03/05/2024 19:17:03/05/1903/05/2024 CBC/C OMPLE TE BLD COUNT W/DIF F basophils 0.6 % 0.0-2. 0 Not Available [facility] (Lab) [address] [place], [address], 03/05/2024 19:17:03/05/1903/05/2024 CBC/C OMPLE TE BLD COUNT W/DIF F immature granulocytes 0.2 % 0.00-0 .50 Not Available [facility] (Lab) [address] [place], [address], 03/05/2024 19:17:09 03/05/1903/05/2024 CBC/C OMPLE TE BLD COUNT W/DIF F neutrophils, absolute count 2.01 x10'3 /uL 1.5-8. 0 Not Available [facility] (Lab) [address] [place], [address], 03/05/2024 19:17:09 03/05/1903/05/2024 CBC/C OMPLE TE BLD COUNT W/DIF F lymphocytes, absolute count 2.07 x10'3 /uL 1.07-3 .43 Not Available [facility] (Lab) [address] [place], [address], 03/05/2024 19:17:09 03/05/1903/05/2024 CBC/C OMPLE TE BLD COUNT W/DIF F monocytes, absolute count 0.52 x10'3 /uL 0.29-0 .99 Not Available [facility] (Lab) [address] [place], [address], 03/05/2024 19:17:09 03/05/1903/05/2024 CBC/C OMPLE TE BLD COUNT W/DIF F eosinophils, absolute count 0.17 x10'3 /uL 0.02-0 .53 Not Available [facility] (Lab) [address] [place], [address], 03/05/2024 19:17:09 03/05/1903/05/2024 CBC/C OMPLE TE BLD COUNT W/DIF F basophils, absolute count 0.03 x10'3 /uL 0.01-0 .08 Not Available [facility] (Lab) [address] [place], [address], 03/05/2024 19:17:09 03/05/1903/05/2024 CBC/C OMPLE TE BLD COUNT W/DIF F immature granulocytes ,absolute 0.01 x10'3 /uL 0.00-0 .05 Not Available [facility] (Lab) [address] [place], [address], 03/05/2024 19:17:09 03/05/19 25 03/05/2024 CBC/C OMPLE TE BLD COUNT W/DIF F nucleated red blood cells 0.0 % -0 Not Available [facility] (Lab) [address] [place], [address], 03/05/2024 19:17:09 03/05/19 25 03/05/2024 CBC/C OMPLE TE BLD COUNT W/DIF F NRBC# 0.00 x10'3 /uL Not Available [facility] (Lab) [address] [place], [address], 03/05/2024 19:17:09 03/05/19 25 03/05/2024 LIPID PANEL cholesterol 243 mg/dL 140-19 9 high [facility] LA[facility] NSUS RECOM MENDA TION FOR FELIX STERO L: ADULT CHILD LOW RISK: <200 <170 BORDE RLINE : <200- 239 ----- HIGH RISK: >240 >200 Not Available [facility] (Lab) [address] [place], [address], 03/05/2024 19:48:20 03/05/19 25 03/05/2024 LIPID PANEL triglyceride s 88 mg/dL 0-150 [facility] LAINE NSUS REPOR T RECOM MENDA TION FOR TRIGL YCERI CHELO: ADULT CHILD LOW RISK: <150 ----- BODER LINE: 150-1 99 ----- HIGH RISK: >200 ----- Not Available [facility] (Lab) [address] [place], [address], 03/05/2024 19:48:20 03/05/19 25 03/05/2024 LIPID PANEL HDL cholesterol 116 mg/dL 40- Not Available [facility] (Lab) [address] [place], [address], 03/05/2024 19:48:20 03/05/19 25 03/05/2024 LIPID PANEL LDL cholesterol, calculated 109 mg/dL 0-130 [facility] LAINE NSUS REPOR T RECOM MENDA TIONS FOR LDL: ADULT CHILD LOW RISK <130 <110 (OPTI MAL LDL) <100 ----- BORDE RLINE : 130-1 59 ----- HIGH RISK: >160 >130 A TRIGL YCERI DE RESUL T >400 INVAL IDATE S THE CALCU LATIO N FOR LDL FRACT IONAT ION - THE LDL RESUL T WILL NOT BE REPOR BRYAN. Not Available [facility] (Lab) [address] [place], [address], 03/05/2024 19:48:20 03/05/19 25 03/05/2024 COMPR EHENS MERCEDES METAB OLIC PANEL sodium 136 mmol/ L 137-14 5 low Not Available [facility] (Lab) [address] [place], [address], 03/05/2024 19:48:26 03/05/19 25 03/05/2024 COMPR EHENS MERCEDES METAB OLIC PANEL potassium 4.4 mmol/ L 3.5-5. 1 Not Available [facility] (Lab) [address] [place], [address], 03/05/2024 19:48:26 03/05/19 25 03/05/2024 COMPR EHENS MERCEDES METAB OLIC PANEL chloride 106 mmol/ L 98-107 Not Available [facility] (Lab) [address] [place], [address], 03/05/2024 19:48:26 03/05/19 25 03/05/2024 COMPR EHENS MERCEDES METAB OLIC PANEL carbon dioxide 25 mmol/ L 22-30 Not Available [facility] (Lab) [address] [place], [address], 03/05/2024 19:48:26 03/05/19 25 03/05/2024 COMPR EHENS MERCEDES METAB OLIC PANEL anion gap 9.4 mmol/ L 14-22 low Not Available [facility] (Lab) [address] [place], [address], 03/05/2024 19:48:26 03/05/19 25 03/05/2024 COMPR EHENS MERCEDES METAB OLIC PANEL glucose 98 mg/dL 70-99 Not Available [facility] (Lab) [address] [place], [address], 03/05/2024 19:48:26 03/05/19 25 03/05/2024 COMPR EHENS MERCEDES METAB OLIC PANEL BUN 12 mg/dL 8-19 Not Available [facility] (Lab) [address] [place], [address], 03/05/2024 19:48:26 03/05/19 25 03/05/2024 COMPR EHENS MERCEDES METAB OLIC PANEL creatinine 0.68 mg/dL 0.66-1 .25 Not Available [facility] (Lab) [address] [place], [address], 03/05/2024 19:48:26 03/05/19 25 03/05/2024 COMPR EHENS MERCEDES METAB OLIC PANEL GFR >60 Refer ence Range : [place] ge GFR Healt hy Adult : >60 mL/mi n/1.7 3 m2 Chron ic Kidne y Disea se: 15-60 mL/mi n/1.7 3 m2 Kidne y Failu re: <15/m L/min /1.73 m2 [email or web address] ov The MDRD study equat ion has not been valid ated in child mary <18 years of age; pregn ant women ; the elder ly >85 years of age; or in some racia l or ethni c subgr oups, such as Hispa nics. Outsi de the valid ated soni eters , estim ated GFR is less accur ate, requi ring clini sagar judgm ent on a case- by-ca se basis . Clini sagar inter preta tion for other races and ages must be made by the clini jose juan. The MDRD study equat ion has not been valid ated for the evalu ation of serum creat inine relat ed to nutri vandana l statu s or medic ation usage . For perso ns <18 years of age, a pedia tric GFR calcu lator is avail able on the [facility] websi te: [email or web address] :[email or web address] [email or web address] rg/pr ofess ional s/kdo qi/gf r_cal culat or Not Available [facility] (Lab) [address] [place], [address], 03/05/2024 19:48:26 03/05/19 25 03/05/2024 COMPR EHENS MERCEDES METAB OLIC PANEL alkaline phosphatase 81 U/L 38-126 Not Available [facility] (Lab) [address] [place], [address], 03/05/2024 19:48:26 03/05/19 25 03/05/2024 COMPR EHENS MERCEDES METAB OLIC PANEL alanine aminotransfe rase 27 U/L 0-35 Not Available [facility] (Lab) [address] [place], [address], 03/05/2024 19:48:26 03/05/19 25 03/05/2024 COMPR EHENS MERCEDES METAB OLIC PANEL aspartate aminotransfe rase 33 U/L 15-37 Not Available [facility] (Lab) [address] [place], [address], 03/05/2024 19:48:26 03/05/19 25 03/05/2024 COMPR EHENS MERCEDES METAB OLIC PANEL bilirubin, total 1.00 mg/dL 0.20-1 .30 Not Available [facility] (Lab) [address] [place], [address], 03/05/2024 19:48:26 03/05/19 25 03/05/2024 COMPR EHENS MERCEDES METAB OLIC PANEL calcium 9.4 mg/dL 8.4-10 .2 Not Available [facility] (Lab) [address] [place], [address], 03/05/2024 19:48:26 03/05/19 25 03/05/2024 COMPR EHENS MERCEDES METAB OLIC PANEL total protein 7.4 g/dL 6.3-8. 2 Not Available [facility] (Lab) [address] [place], [address], 03/05/2024 19:48:26 03/05/19 25 03/05/2024 COMPR EHENS MERCEDES METAB OLIC PANEL albumin 4.5 g/dL 3.0-4. 4 high Not Available [facility] (Lab) [address] [place], [address], 03/05/2024 19:48:26 03/05/19 25 03/05/2024 COMPR EHENS MERCEDES METAB OLIC PANEL globulin 2.9 g/dL 2.6-4. 2 Not Available [facility] (Lab) [address] [place], [address], 03/05/2024 19:48:26 03/05/19 25 03/05/2024 COMPR EHENS MERCEDES METAB OLIC PANEL A/G ratio 1.6 ratio 1.0-2. 0 Not Available [facility] (Lab) [address] [place], [address], 03/05/2024 19:48:26 03/05/19 25 03/05/2024 HEMOG LOBIN A1C HA1C 5.1 % 4.0-6. 0 Diabe cande Scree frandy Crite connor: <5.7% Consi stent with absen ce of diabe cande 5.7-6 .4% Consi stent with incre ased risk for diabe cande (pred iabet es) >OR=6 .5% Consi stent with diabe cande REFER ENCE: Diabe cande Care 2016, 39(Wan ppl.1 ):s13 -s22 Not Available [facility] (Lab) [address] [place], [address], 03/05/2024 20:09:50 03/05/19 25 03/05/2024 VITAM IN D 25-HY DROXY vd25oh 22.0 NG/mL 30-100 low Vitam in D Statu s: Defic ient: <20 ng/mL Insuf ficie nt: 20-29 ng/mL Suffi cient : 30-10 0 ng/mL Not Available [facility] (Lab) [address] [place], [address], 03/05/2024 20:09:55 03/05/19 25 03/05/2024 TSH W/REF SONA FT4 TSH with reflex free T4 1.720 uIU/m L 0.465- 4.680 Not Available [facility] (Lab) [address] [place], [address], 03/05/2024 20:12:56 03/05/19 25 03/05/2024 VITAM IN B12 (PRABHAKAR AKUA ) vb12 795 pg/mL 239-93 1 Not Available [facility] (Lab) [address] [place] [address], [address], 03/05/2024 21:05:22 03/05/19 25 03/05/2024 FOLAT E, SERUM /PLAS MA folate 6.49 NG/mL 2.76-2 0.0 Not Available [facility] (Lab) [address] [place] [address], [address], 03/05/2024 21:05:23 Result Notes None recorded. Problems Name Problem SNOMED Code Status Onset Date Resolution Date Notes Provider Name and Address Organization Details Recorded Time Calcificat ion of breast 750608716 Active 2021 Not Available [facility] 3 08:45:45 Osteopenia 808583733 Active 2021 Not Available [facility] 3 08:45:45 Malignant tumor of breast 473762550 Active 2022 Heaven Brown NP [address], [place], [address] , [employer] 3 09:53:02 Visual impairment 817297953 Active 2022 Mason Amin MD [address], [address], [place], [address] , [employer] 3 14:35:57 Right upper quadrant pain 036593278 Active 2022 Mason Amin MD [address], [place], [address] , [employer] 3 14:37:18 History of right mastectomy 620772857 Active 2022 Mason Amin MD [address], [place], [address] , [employer] 3 14:39:23 Bilateral hearing loss 72579448 Active 2022 Mason Amin MD [address], [address], [place], [address] , [employer] 3 14:41:42 Overweight 626135784 Active 2022 Mason Amin MD [address], [address], [place], [address] , [employer] 3 14:48:22 Hepatomega ly 12535382 Active 2023 Mason Amin MD [address], [address], [place], [address] , [employer] 4 10:13:19 History of malignant neoplasm of breast 689442703 Active 2023 Mason Aimn MD [address], [address], [place], [address] , [employer] 4 10:14:24 Vitamin D deficiency 36859063 Active 2023 Mason Amin MD [address], [address], [place], [address] , [facility] [employer] [facility] 4 09:35:14 Vitamin B12 deficiency (non anemic) 32362155 Active 2023 Mason Amin MD [address], [place], [address] , [facility] [employer] [facility] 4 09:36:04 Hyperlipid emia 67703499 Active 2023 Mason Amin MD [address], [place], [address] , [employer] [facility] 4 09:36:58 Liver enzymes level above reference range 947908901 Active 2023 Mason Amin MD [address], [place], [address] , [facility] [employer] [facility] 4 09:37:08 Closed fracture of proximal left humerus 2329642820321 9100 Active 2023 Mason Amin MD [address], [place], [address] , [employer] [facility] [employer] [facility] 4 16:48:05 Colorectal cancer detected by DNA-based stool screening 596940110 Active 2024 Mason Amin MD [address], [place], [address] , [facility] [employer] [facility] [employer] [facility] 5 09:53:11 Problem Notes None recorded. Procedures Surgical History Date Name Laterality Status Provider Name and Address Organization Details Recorded Time 07/09/19 24 Medicare Wellness CPT Code, subsequent completed Lesvia Larson RN [facility] [employer] [facility] 07/09/2023 16:17:47 06/20/19 23 Most Recent Mammogram completed Heaven Geiger RN [facility] [employer] [facility] 08/08/2022 09:32:25 08/09/19 22 Masectomy completed Not Available [employer] 3 08:43:31 06/05/19 22 Most Recent Bone Density completed Heaven Brown NP [address], [place], [address], [facility] 08/08/2022 09:44:58 tonsilectomy/surjit noids completed Not Available [facility] 04/19/2022 08:43:31 Appendectomy completed Not Available [facility] 04/19/2022 08:43:31 Cataract Surgery completed Not Available [facility] 04/19/2022 08:43:31 Tubal Ligation completed Not Available [facility] 04/19/2022 08:43:31 Imaging Results None recorded. Procedure Notes None recorded. Medical Equipment None Reported. Allergies Allergen ID Allergen Name Allergen Category Reaction Reaction Severity Criticality Documentation Date Start Date Code Code System Note Provider Name and Address Organization Details Recorded Time Substance with sulfonami de structure and antibacte rial mechanism of action (substanc e) medicatio n hives Not available Not available 04/19/2022 19164 8003 SNOMED Not Available [facility] 08:48:32 Medications Name Sig Start Date Stop Date Status Note LastModified by Organization Details LastModified Time doxycycline hyclate 100 mg capsule 02/02 completed Not Available Not Available Not Available azithromyci n 250 mg tablet TK 2 TS PO AT ONCE TODAY THEN TK 1 T PO ONCE D FOR 4 DAYS 04/05 completed Not Available Not Available Not Available hydrocodone 5 mg-acetamin ophen 325 mg tablet TAKE 1 TABLET BY MOUTH EVERY 6 HOURS NEEDED FOR PAIN active Not Available Not Available No t Available [employer] Soluspan 6 mg/mL suspension for injection 04/05 completed [facility]#: 0517- 0720- 01 Not Available Not Available Not Available phentermine 15 mg capsule 03/05 completed Not Available Not Available Not Available phentermine 37.5 mg tablet TAKE 1 TABLET BY MOUTH EVERY DAY IN THE MORNING 03/26 completed Not Available Not Available Not Available acetaminoph en 500 mg tablet TAKE 1 TO 2 TABLETS BY MOUTH EVERY 6 HOURS NEEDED FOR PAIN active Not Available Not Available No t Available phentermine 30 mg capsule 03/26 completed Not Available Not Available Not Available Guaiatussin AC 10 mg-100 mg/5 mL oral liquid TK 5 ML PO Q 4 TO 6 H PRF 10 DAYS DO NOT EXCEED 60 ML IN ONE DAY 04/05 completed Not Available Not Available Not Available prednisolon e acetate 1 % eye drops,suspe nsion 03/31 completed Not Available Not Available Not Available cyanocobala min (vit B-12) 1,000 mcg/mL injection solution Inject 1 mL every week by intramusc ular route for 1 day. 11/26 completed Not Available Not Available Not Available omeprazole 20 mg capsule,del ayed release TAKE 1 CAPSULE BY MOUTH DAILY active Not Available Not Available No t Available ceftriaxone 500 mg solution for injection 04/05 completed [facility]#: [id number] 7338- 01 Not Available Not Available Not Available cyanocobala min (vit B-12) 1,[address] 2 tablets every day by sublingua l route as directed for 90 days. 2023 active Not Available Not Available Not Avai lable mupirocin 2 % topical ointment APPLY TOPICALLY TO THE AFFECTED AREA DAILY 02/02 completed Not Available Not Available Not Available ergocalcife rol (vitamin D2) 1,250 mcg (50,000 unit) capsule Take 1 capsule every week by oral route as directed for 90 days. 2024 active Not Available Not Available Not Avai lable ondansetron 4 mg disintegrat ing tablet 02/02 completed Not Available Not Available Not Available fluticasone propionate 50 mcg/actuati on nasal spray,suspe nsion Inhale 2 sprays every day by intranasa l route in the morning for 30 days. active Not Available Not Available No t Available oxycodone 5 mg tablet active Not Available Not Available No t Available cyclobenzap rine 5 mg tablet 02/02 completed Not Available Not Available Not Available Vigamox 0.5 % eye drops INT 1 GTT MARISSA TID STARTING 1 DAY PRIOR TO SURGERY active Not Available Not Available No t Available rosuvastati n 5 mg tablet Take 1 tablet every day by oral route at bedtime for 90 days. 2024 active Not Available Not Available Not Avai lable nitrofurant oin monohydrate /macrocryst als 100 mg capsule active Not Available Not Available Not Available Mucinex DM 30 mg-600 mg tablet,exte nded release 12 hr Take 1 tablet every 12 hours by oral route as directed for 15 days. 04/05 completed Not Available Not Available Not Available Nevanac 0.1 % eye drops,suspe nsion INSTILL 1 DROP IN RIGHT EYE TID START 1 DAY BEFORE SURGERY active Not Available Not Available No t Available Durezol 0.05 % eye drops INT 1 GTT MARISSA TID STARTING AFTER SURGERY active Not Available Not Available No t Available Wegovy 0.25 mg/0.5 mL subcutaneou s pen injector Inject 0.25 mg every week by subcutane ous route as directed. 06/12 completed Not Available Not Available Not Available Vitals Date Recorded Body height Body mass index (BMI) Body weight Body temperature Heart rate Respiratory rate Oxygen saturation Oxygen saturation in Arterial blood by Pulse oximetry Systolic blood pressure Diastolic blood pressure Provider Name and Address Organization Details Last Updated DateTime 4 177.8 cm 27.1 kg/m2 71157.0 1 g 97.7 [degF] 76 /min 16 /min 98 % 98 % 126 mm[Hg] 68 mm[Hg] [employer] 4 14:18:10 Date Recorded Body height Body mass index (BMI) Body weight Body temperature Heart rate Respiratory rate Oxygen saturation Oxygen saturation in Arterial blood by Pulse oximetry Systolic blood pressure Diastolic blood pressure Provider Name and Address Organization Details Last Updated DateTime 4 177.8 cm 28 kg/m2 39330.8 6 g 98.4 [degF] 74 /min 16 /min 98 % 98 % 128 mm[Hg] 76 mm[Hg] Jake [employer] [facility] [employer] 4 14:30:18 Date Recorded Body height Body mass index (BMI) Body weight Body temperature Oxygen saturation Oxygen saturation in Arterial blood by Pulse oximetry Heart rate Systolic blood pressure Diastolic blood pressure Provider Name and Address Organization Details Last Updated DateTime 4 177.8 cm 27.3 kg/m2 86922.3 g 97 [degF] 95 % 95 % 83 /min 130 mm[Hg] 86 mm[Hg] Valery Pittman RN [facility] [employer] 4 11:01:28 Date Recorded Body height Body temperature Heart rate Provider Name and Address Organization Details Last Updated DateTime 03/05/2024 177.8 cm 96.8 [degF] 80 /min Valery Pittman RN [facility] [employer] [facility] 03/05/2024 10:33:24 Date Recorded Body mass index (BMI) Body weight Oxygen saturation Oxygen saturation in Arterial blood by Pulse oximetry Systolic blood pressure Diastolic blood pressure Provider Name and Address Organization Details Last Updated DateTime 27.3 kg/m2 58139.9 g 95 % 95 % 138 mm[Hg] 84 mm[Hg] Mason Amin MD [address], [place], [address], [facility] [employer] [facility] 5 10:47:12 Date Recorded Body height Body mass index (BMI) Body weight Body temperature Oxygen saturation Oxygen saturation in Arterial blood by Pulse oximetry Heart rate Provider Name and Address Organization Details Last Updated DateTime 177.8 cm 27 kg/m2 96784.3 7 g 97.2 [degF] 95 % 95 % 69 /min Valery Pittman RN [facility] [employer] [facility] 5 10:00:48 Date Recorded Systolic blood pressure Diastolic blood pressure Provider Name and Address Organization Details Last Updated DateTime 03/26/2024 136 mm[Hg] 86 mm[Hg] Mason Amin MD [address], [place], [address], [facility] [employer] [facility] 03/26/2024 10:16:34 Social History Question Answer Notes LastModified by Organization Details LastModified Time Tobacco Smoking Status Former Smoker in the 1970s for maybe 10 years Valery Pittman RN [facility], [facility] [employer] [facility] 03/05/2024 10:35:39 Do You Have An Advance Directive? Yes - Nick [email or web address] Information not available 05/24/2022 What Is Your Level Of Alcohol Consumption? Occasional [id number] Information not available 04/19/2022 Are You Blind Or Do You Have Difficulty Seeing? No Information not available 03/20/2023 Is Blood Transfusion Acceptable In An Emergency? Yes [email or web address] Information not available 03/20/2023 What Is Your Level Of Caffeine Consumption? Moderate [id number] Information not available 04/19/2022 What Is Your Code Status? Other Yes If You See Her Fall ,No If You Find Her [email or web address] Information not available 03/20/2023 In The 14 Days Before Symptom Onset, Have You Had Close Contact With A Laboratory-confi rmed COVID-19 While That Case Was Ill? No [email or web address] Information not available 03/20/2023 In The 14 Days Before Symptom Onset, Have You Had Close Contact With A Person Who Is Under Investigation For COVID-19 While That Person Was Ill? No [email or web address] Information not available 03/20/2023 Are You Currently Employed? No [email or web address] Information not available 03/20/2023 Are You Deaf Or Do You Have Serious Difficulty Hearing? Yes Does Wear Hearing Aids [email or web address] Information not available 03/20/2023 What Type Of Diet Are You Following? 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 No [email or web address] Information not available 03/20/2023 When Did You Quit Smoking? 15+yearssincelastc igapending sale to [facility] Information not available 03/05/2024 Do You Use Insect Repellent Routinely? No [email or web address] Information not available 03/20/2023 Where Do You Live? SingleLevelHouse Information not available 03/20/2023 Do You Have A Medical Power Of Cash Register Balancer? Yes [email or web address] Information not available 03/20/2023 What Was The Date Of Your Most Recent Tobacco Screening? 07/09/2023 [email or web address] Information not available 07/09/2023 How Many Children Do You Have? 1 [email or web address] Information not available 03/20/2023 Have You Ever Been Counseled For Unhealthy Alcohol Use? No [email or web address] Information not available 03/20/2023 Do You Have Any Pets? Yes [email or web address] Information not available 03/20/2023 What Is Your Relationship Status? [email or web address] Information not available 05/24/2022 Do You Use Your Seat Belt Or Car Seat Routinely? Yes [email or web address] Information not available 03/20/2023 Do You Have Smoke And Carbon Monoxide Detectors In Your Home? Yes [email or web address] Information not available 03/20/2023 At What Age Did You Start Smoking Tobacco? 16 [email or web address] Information not available 03/05/2024 Are You Passively Exposed To Smoke? No [email or web address] Information not available 03/20/2023 Are There Any Smokers In Your House? No [email or web address] Information not available 03/20/2023 Do You Participate In Social Media? Yes [email or web address] Information not available 03/20/2023 What Types Of Sporting Activities Do You Participate In? Alonzo-chi, Yoga, [place] [email or web address] Information not available 03/20/2023 Do You Feel Stressed (tense, Restless, Nervous, Or Anxious, Or Unable To Sleep At Night)? [id number] [email or web address] Information not available 03/20/2023 Do You Use Any Illicit Or Recreational Drugs? No [email or web address] Information not available 03/20/2023 Do You Use Sunscreen Routinely? Yes [email or web address] Information not available 03/20/2023 How Many Years Have You Smoked Tobacco? 10 Information not available 03/05/2024 Have You Recently Traveled Abroad? No [email or web address] Information not available 03/20/2023 Do You Or Have You Ever Used Any Other Forms Of Tobacco Or Nicotine? No Information not available 03/20/2023 Sex: Unknown Functional Status Question Answer Note LastModified by Organizat ion Details LastModified Time Do you have difficulty walking or climbing stairs? No [email or web address] Information not available 03/20/2023 Do you have transportation difficulties? No [email or web address] Information not available 03/20/2023 Are you able to walk? YESWOREST [email or web address] Information not available 03/20/2023 Do you have difficulty doing errands alone? No [email or web address] Information not available 03/20/2023 Are you able to care for yourself? Yes [email or web address] Information n ot available 03/20/2023 Do you have difficulty dressing or bathing? No [email or web address] Information not available 03/20/2023 What is your exercise level? Occasional [id number] Information not available 04/19/2022 Mental Status Question Answer Note LastModified by Organization D etails LastModified Time Do you have difficulty concentrating, remembering or making decisions? No [email or web address] Information no t available 03/20/2023 Family History Relationship Description Onset Age of this Age Resolved Age Notes LastModified by Organization Details LastModified Time Father Heart disease [id number] Not available 04/19/2022 08:43:31 Father Hypertensive disorder [id number].285 [id number] Not available 04/19/2022 08:43:31 Mother Diabetes mellitus [id number].667 [id number] Not available 04/19/2022 08:43:31 Mother Heart disease [id number].494 [id number] Not available 04/19/2022 08:43:31 Medical History Condition Response BREAST PROBLEMS Y CANCER: SPECIFY Y Gynecological History Statement/Question Response How many live births 1 Abnormal Pap N If Post Menopausal, Age at Menopause 51 Date of Last Colonoscopy Most Recent Bone Density 06/04/2021 Date of Last Pap Most Recent Mammogram 06/19/2022 Obstetrics History GPAL:G 2 P 2 0 0 2 Type Value Full Term 2 Living 2 Total 2 Immunizations Vaccine Type Date Status Note Provider Nam e and Address Organization Details Recorded Time SARS-COV-2 (COVID-19) vaccine, UNSPECIFIED 3 completed Mason Amin MD [address] [address], [place], [address], [employer] 01/28/2024 11:07:16 SARS-COV-2 (COVID-19) vaccine, UNSPECIFIED 4 completed Mason Amin MD [address] [facility] [address] [address], [place], [address], [employer] 03/05/2024 10:47:32 SARS-COV-2 (COVID-19) vaccine, UNSPECIFIED 2 completed Not Available [facility] 04/19/2022 08:48:27 influenza, unspecified formulation 2 completed Not Available [facility] 04/19/2022 08:48:27 Influenza, high-dose, trivalent, PF 4 completed Jake carvajal [facility] [employer] 11/27/2023 14:43:20 Past Encounters Encounter ID Performer Location Encounter Start Date Encounter Closed Date Diagnosis/Indication Diagnosis SNOMED-CT Code Diagnosis ICD10 Code Diagnosis Note [id number] [facility] [address] [place] [address] 04/05/2021 00:00:00 04/05/2021 15:45:[id number] [address] 02/02/2022 00:00:00 02/02/2022 13:43:36 [id number] Heaven Brown NP [address] [address] 05/24/2022 08:46:41 05/24/2022 10:00:17 Rib pain 845272541 R07.81 Heat/ice compress, gentle stretching . NSAID prn. FU if not resolved in 1 week. [id number] Heaven Brown NP [address] [address] 08/08/2022 09:13:45 08/08/2022 09:54:32 Osteopenia 370967486 M85.80 Vit d recommende d. States she is not on any vitamins as of 08/08/22 Hearing loss 46104298 H9 1.90 Hearing aides bilaterall y. Malignant tumor of breast 443358863 C50.011 seeing danae lópez and Dr. [employer]. [id number] Mason Amin MD [address] [address] 02/07/2023 14:24:24 02/07/2023 15:03:41 Visual impairment 383994869 H54.7 Right uppe r quadrant pain 933213802 R10.11 History of right mastectomy 913648985 Z90.11 08/09 Bilateral hearing loss 07634246 H91.93 Chronic Overweight 269055386 E66 .3 [id number] Mason Amin MD [address] [address] 03/05/2023 10:01:42 03/05/2023 10:38:27 Hepatomegaly 13854463 R16.0 History of malignant neoplasm of breast 743524722 Z85.3 Rt History of right mastectomy 600759867 Z90.11 08/09 Overweight 884147850 E66 .3 Right uppe r quadrant pain 945842076 R10.11 Bilateral hearing loss 38540411 H91.93 Chronic Visual impairment 626793 003 H54.7 Adult heal th examination 779627094 Z00.00 [id number] Mason Amin MD [address] [address] 03/20/2023 09:21:15 03/20/2023 09:57:54 Right upper quadrant pain 730836847 R10.11 Hepatomegaly 48701114 R1 6.0 History of malignant neoplasm of breast 051025168 Z85.3 Rt History of right mastectomy 853956924 Z90.11 08/09 Overweight 912890610 E66 .3 Visual impairment 187287 003 H54.7 Bilateral hearing loss 42419859 H91.93 Chronic Vitamin D deficiency 347 63278 E55.9 Vitamin B1 2 deficiency (non anemic) 67382625 E53.8 Liver enzy mes level above reference range 243753331 R74.01 Hyperlipidemia 48809398 E78.5 [id number] Mason Amin MD [address] [address] 07/09/2023 16:04:04 07/09/2023 16:51:48 Vitamin D deficiency 69285155 E55.9 Vitamin B1 2 deficiency (non anemic) 27978411 E53.8 Hepatomegaly 62823581 R1 6.0 Right uppe r quadrant pain 796787022 R10.11 History of malignant neoplasm of breast 322939205 Z85.3 Rt History of right mastectomy 387395754 Z90.11 08/09 Overweight 888601159 E66 .3 Visual impairment 286208 003 H54.7 Bilateral hearing loss 87659650 H91.93 Chronic Liver enzy mes level above reference range 744917621 R74.01 Hyperlipidemia 49782192 E78.5 Adult [facility] th examination 236279020 Z00.00 Screening for disorder 271896873 Z13.9 Closed fra cture of proximal left humerus 7325439758 4714313 S4.06/12 [id number] Mason Amin MD [facility] [address] [place] [phone] 1 10/09/2023 14:10:53 10/09/2023 14:29:42 Vitamin D deficiency 69896292 E55.9 Vitamin B1 2 deficiency (non anemic) 13336098 E53.8 Hepatomegaly 34773278 R1 6.0 Right uppe r quadrant pain 276286537 R10.11 History of malignant neoplasm of breast 220361402 Z85.3 Rt History of right mastectomy 729486438 Z90.11 08/09 Overweight 641333041 E66 .3 Bilateral hearing loss 06121747 H91.93 Chronic Liver enzy mes level above reference range 992990289 R74.01 Hyperlipidemia 85393041 E78.5 Closed fra cture of proximal left humerus 2612246748 0606709 S42.06/12 [id number] Mason Amin MD [facility] [address] [place] [address] [phone] 1 11/27/2023 14:17:13 11/27/2023 14:44:30 Vitamin D deficiency 03823414 E55.9 Vitamin B1 2 deficiency (non anemic) 60692601 E53.8 Hepatomegaly 51578244 R1 6.0 Right uppe r quadrant pain 725426369 R10.11 History of malignant neoplasm of breast 324750221 Z85.3 Rt History of right mastectomy 835695780 Z90.11 08/09 Overweight 798256427 E66 .3 Bilateral hearing loss 57583232 H91.93 Chronic Hyperlipidemia 52646421 E78.5 Diet controlled Closed fra cture of proximal left humerus 0659258295 2526668 S4.06/12 Administra tion of influenza vaccine 50485808 Z23 [id number] Mason Amin MD [address] [phone] 1 01/28/2024 10:50:10 01/28/2024 11:19:04 Hyperlipidemia 19951455 E78.5 Diet controlled Vitamin D deficiency 347 19135 E55.9 Vitamin B1 2 deficiency (non anemic) 37833876 E53.8 Hepatomegaly 27589800 R1 6.0 History of malignant neoplasm of breast 472254664 Z85.3 Rt History of right mastectomy 664839566 Z90.11 08/09 Overweight 872598548 E66 .3 [id number] Mason Amin MD [place] [phone] 1 03/05/2024 10:23:44 03/05/2024 10:53:39 Vitamin D deficiency 46541377 E55.9 Hyperlipidemia 30430514 E78.5 Diet controlled Vitamin B1 2 deficiency (non anemic) 40080419 E53.8 Hepatomegaly 68113915 R1 6.0 History of malignant neoplasm of breast 060740540 Z85.3 Rt History of right mastectomy 400626295 Z90.11 08/09 Overweight 314321326 E66 .3 Screening for malignant neoplasm of colon 949772918 Z12.11 Postmenopausal state 764 85749 Z78.0 [id number] Mason Amin MD [place] [phone] 1 03/26/2024 09:49:02 03/26/2024 10:21:19 Hyperlipidemia 06498934 E78.5 Vitamin D deficiency 347 43271 E55.9 Vitamin B1 2 deficiency (non anemic) 00643041 E53.8 Improved Hepatomegaly 64420883 R1 6.0 History of malignant neoplasm of breast 892808085 Z85.3 Rt History of right mastectomy 672352071 Z90.11 08/09 Overweight 214886877 E66 .3 Health Concerns Section Related Observation LastModified by Organization Detai ls LastModified Time None Recorded Concern Status LastModified by Organization Details LastModified Time None Recorded Advance Directives Directive Y: - Nick Payers Encounter Date Sequence Insurance Name Policy Number Policy Marcos Covered Member ID Marcos Member ID Guarantor Name 10/09/2023 1 [facility] (MEDICARE REPLACEMENT/A DVANTAGE - HMO) [id number] Juju Padilla [id number] Juju Hamptonkip 11/27/2023 1 [facility] (MEDICARE REPLACEMENT/A DVANTAGE - HMO) [id number] Juju Sumnerel [id number] Juju Sumnerel 01/28/2024 1 [facility] (MEDICARE REPLACEMENT/A DVANTAGE - HMO) [id number] Juju Hamptonndel [id number] Juju Sumnerel 03/05/2024 1 [facility] (MEDICARE REPLACEMENT/A DVANTAGE - HMO) [id number] Juju Hamptonkip [id number] Juju Sumnerel 03/26/2024 1 [facility] (MEDICARE REPLACEMENT/A DVANTAGE - HMO) [id number] Juju Hamptonkip [id number] Juju Mathews Randy Notes Date Note Type Note Provider Name and Address Organization Details Recorded Time 10/09/2023 text/html Pt is here for f /u on her lab and chronic conditions. Feeling overall much better compared to last visit. Denies any new concern. Pt has not gone for lab yet. S/p fall last month and got Lt humerus fracture and she is f/u with Ortho for it. Pt is f/u with GI for her chronic abdo pain and got EGD done with them and it was good. So pt will be going for more testing with them next month. Pt has chronic b/l hearing loss and has hearing aids at home. Pt has h/o Rt breast cancer with Rt breast mastectomy done in 08/09 and she is doing well with it. Pt is f/u with her specialists at [place] for it. Mason Amin MD [address] [place] [address], [facility] [address], [place], [address], [facility] [employer] 10/09/2023 14:33:48 11/27/2023 text/html Pt is here for f /u on her lab, meds and chronic conditions. Feeling overall much better compared to last visit. Denies any new concern. Wegovy and Zepbound are not covered with her insurance. So pt wants to cont on Phentermine. S/p fall in 06/12 and got Lt humerus fracture and she is f/u with Ortho for it. Pt is f/u with GI for her chronic abdo pain and got EGD done with them and it was good. So pt will be going for more testing with them next month. Pt has chronic b/l hearing loss and has hearing aids at home. Pt has h/o Rt breast cancer with Rt breast mastectomy done in 08/09 and she is doing well with it. Pt is f/u with her specialists at [place] for it. Mason Amin MD [address] [facility], [facility] [address], [place], [address], [facility] [employer] 11/27/2023 14:43:12 01/28/2024 text/html Pt is here for f /u on her meds and chronic conditions. Feeling overall much better compared to last visit. Denies any new concern. Wegovy and Zepbound are not covered with her insurance. So pt wants to cont on Phentermine. S/p fall in 06/12 and got Lt humerus fracture and she is f/u with Ortho for it. Pt is f/u with GI for her chronic abdo pain and got EGD done with them and it was good. So pt will be going for more testing with them next month. Pt has chronic b/l hearing loss and has hearing aids at home. Pt has h/o Rt breast cancer with Rt breast mastectomy done in 08/09 and she is doing well with it. Pt is f/u with her specialists at [place] for it. Mason Amin MD [address] [facility], [facility] [address], [place], [address], [facility] [employer] 01/28/2024 11:08:28 03/05/2024 text/html Pt is here for f /u on her meds and annual exam. Feeling overall much better compared to before. Denies any problem with meds. Denies any new concern. Wegovy and Zepbound are not covered with her insurance. So pt wants to cont on Phentermine. So far, 5 lbs wt loss on it. S/p fall in 06/12 and got Lt humerus fracture and she is f/u with Ortho for it. Pt is f/u with GI for her chronic abdo pain and got EGD done with them and it was good. So pt will be going for more testing with them next month. Pt has chronic b/l hearing loss and has hearing aids at home. Pt has h/o Rt breast cancer with Rt breast mastectomy done in 08/09 and she is doing well with it. Pt is f/u with her specialists at [place] for it. Mason Amin MD [address] [facility], [place] [address], [place], [address], [employer] [facility] [employer] 03/05/2024 10:50:51 03/26/2024 text/html Pt is here for f /u on her annual labs. Feeling overall much better compared to before. Denies any problem with meds. Denies any new concern. Pt will be seeing GI next Sunday. Wegovy and Zepbound are not covered with her insurance. S/p fall in 06/12 and got Lt humerus fracture and she is f/u with Ortho for it. Pt is f/u with GI for her chronic abdo pain and got EGD done with them and it was good. So pt will be going for more testing with them next month. Pt has chronic b/l hearing loss and has hearing aids at home. Pt has h/o Rt breast cancer with Rt breast mastectomy done in 08/09 and she is doing well with it. Pt is f/u with her specialists at [place] for it. Mason Amin MD [address] [facility], [facility] [address], [place], [address], [employer] [facility] [employer] 03/26/2024 10:17:45 OBGyn Episode No OBEpisode recorded.
--- OUTSIDE RECORDS SUMMARY | 2024-03-28 00:24 | XMS_ITS | Clinical Summary ---
Author Organization [facility] Address [facility] [place] [address] Care Team Providers Care Director Of Volunteer Services Name Role Phone Mason Amin MD Primary Care Provider [phone] Allergies Active Allergy Reactions Criticality Noted Date Comments Sulfa (Sulfonamide Antibiotics) Hives Medium 10/2021 Medications acetaminophen (TYLENOL) 500 mg tablet Take 1-2 tablets (500-1,000 mg total) by mouth every 6 (six) hours as needed for pain (1 tablet for mild to moderate pain. 2 tablets for severe pain) 30 tablet 06/12/2023 Active omeprazole (PriLOSEC) 20 mg capsule Take 1 capsule (20 mg total) by mouth daily 05/30/2023 Active ergocalciferol (VITAMIN D) 50,000 unit capsuleIndicati ons:Vitamin D Deficiency Take 1 capsule (50,000 Units total) by mouth once a week Tuesdays Active cyanocobalamin (Vitamin B-12) 1,000 mcg sublingual tabletIndicatio ns:Prevention of Vitamin B12 Deficiency Take 1 tablet (1,000 mcg total) by mouth daily 03/20/2023 Active ibuprofen 200 mg tab/cap Take 2 tablet/capsul e (400 mg total) by mouth every 6 (six) hours as needed for pain Active phentermine 30 mg capsule Take 1 capsule (30 mg total) by mouth every morning 01/12/2024 Active Active Problems Problem Noted Date Diagnosed Date Closed fracture of left proximal humerus 024 Elevated liver enzymes 03/19/2023 Hyperlipidemia 03/19/2023 Vitamin B12 deficiency (non anemic) 03/19/2023 Vitamin D deficiency 03/19/2023 Hepatomegaly 03/04/2023 Bilateral hearing loss 02/06/2023 History of right mastectomy 02/06/2023 Overweight 02/06/2023 Right upper quadrant pain 02/06/2023 Visual impairment 02/06/2023 Rib pain 05/24/2022 History of breast cancer 12/09/2021 Overview (12/09/2021): Added automatically from request for surgery [id number] Hearing loss 09/09/2021 Malignant neoplasm of breast 08/15/2021 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 Abnormal mammogram 06/27/2021 Osteopenia 06/27/2021 Calcification of breast 05/18/2021 Hemochromatosis 10/12/2015 Encounters Date Type Department Care Team Description 01/24/2024 10:10 AM GROUP TESTER Office Visit [facility] [address] [facility] [address] [place] [address] [place] [address] Shant Cerna MD Closed fracture of proximal end of left humerus with routine healing, unspecified fracture morphology, subsequent encounter (Primary Dx); Closed torus fracture of proximal end of left humerus with routine healing, subsequent encounter 01/24/2024 10:00 AM GROUP TESTER - 01/24/2024 11:59 PM GROUP TESTER Hospital Encounter [facility] [address] [place] [address] Closed fracture of proximal end of left humerus with routine healing, unspecified fracture morphology, subsequent encounter; Closed torus fracture of proximal end of left humerus with routine healing, subsequent encounter Discharge Disposition: Discharge to home or self care from Last 3 Months Immunizations Name Administration Dates Next Due Influenza, Quadrivalent, Hig h Dose, Preservative Free, Intrr 01/23/2020 Influenza, Unspecified 10/12/2015 ZOSTER LIVE 10/12/2015 Surgical History Surgery Date Site/Laterality Comments APPENDECTOMY 02/19/1967 - 02/19/1968 TONSILLECTOMY 02/19/1959 - 02/19/1960 TUBAL LIGATION 02/19/1981 - 02/18/1982 CATARACT EXTRACTION W/ INTRA OCULAR LENS IMPLANT 02/19/2011 - 02/19/2012 Left BREAST BIOPSY 07/05/2021 Right CATARACT EXTRACTION W/ INTRA OCULAR LENS IMPLANT 02/19/2011 - 02/19/2012 Right INSERTION OF BREAST TISSUE SOFTLINES SUPERVISOR 07/20/2021 - 08/19/19 Right MASTECTOMY 07/20/2021 - 08/18/2021 Right Medical History Medical History Date Comments Hard to intubate Family History Medical History Relation Name Comments Prostate cancer Father Kidney cancer Mother's Sister Anesthesia problems Other Stomach cancer Paternal Grandfather Relation Name Status Comments Father Mother's Sister Other Paternal Grandfather Social History Tobacco Use Types Packs/Day Years Used Date Smoking Tobacco: Former Cigarettes 0.5 5 1 1976 Smokeless Tobacco: Never Tobacco Cessation:Counseling Given: Not Answered AUDIT-C Answer Date Recorded Q1: How often do you have a drink containing alc ohol? 2-3 times a week 06/18/2023 Q2: How many drinks containi ng alcohol do you have on a typical day when you are drinking? 1 or 2 06/18/2023 Q3: How often do you have si x or more drinks on one occasion? Never 06/18/2023 Personal Safety Answer Date Recorded Have you ever been in or are you currently in a harmful physical or emotional relationship or is someone making you feel afraid or unsafe? Denies 06/18/2023 Comments No Sex and Gender Information Value Date Recorded Sex Assigned at Not on file Legal Sex Female 1:40 AM GROUP TESTER Gender Identity Not on file Sexual Orientation Not on file Obstetrics History Last Filed Vital Signs Vital Sign Reading Time Taken Comments Blood Pressure 151/70 06/18/2023 12:30 PM CDT Pulse 75 06/18/2023 12:30 PM CDT Temperature 36.1 C (97 F) 06/18/2023 10:18 AM CDT Respiratory Rate 24 06/18/2023 12:30 PM CDT Oxygen Saturation 93% 06/18/2023 12:30 PM CDT Inhaled Oxygen Concentration - - Weight 86.2 kg (190 lb 0.6 oz) 07/13/2023 9:12 A M CDT Height 177.8 cm (5' 10 ) 07/13/2023 9:12 AM CDT Body Mass Index 27.27 07/13/2023 9:12 AM CDT Plan of Treatment Health Maintenance Due Date Last Done Comments Colon Cancer Screening-Colonoscopy 1955 Depression Screening 1955 Hepatitis C Screening 1955 Osteoporosis Screening-Bone Density Scan 1954 DTaP/Tdap/Td Vaccine (1 - Tdap) 1965 Hepatitis B Screening 02/17/1972 Zoster Vaccine (2 of 3) 12/07/2015 10/12/2015 Pneumococcal vaccine 65+ (1 of 1 - PCV) 2019 Well Visit 65+ 2019 Covid-19 Vaccine (4 - 2023-2 5 season) 2023 11/30/2020, 04/17/2020, 03/27/2020 Fall Risk Assessment 06/17/2024 06/18/2023 Breast Cancer Screening-Mammogram 07/12/2024 07/13/2023, 07/10/2022, 01/06/2015 Influenza Vaccine Completed 11/27/2023, , 01/23/2020, Additional history exists Medical Devices Implanted [facility] Worker Device Identifier Shelf Expiration Date Model / Serial / Lot [employer] Natrelle Inspira Smooth Shell Surface Extra Full Profile Implant Latex Free Ssx-750 - [id number] - [id number] Implanted:Qty: 1 on 01/09/2022 by Prosper Nolen MD at [facility] Breast Right: Breast [employer] 05/29/2025 SSX-750 / [id number] / Synthes Plate Bone Lcp Combi Philos Long Stainless Steel L232mm X W12mm X H3.7mm Humerus Proximal 10 Hole Shaft Sterile 3.5mm Screw Small Fragment Set 241.923s - [id number] Implanted:Qty: 1 on 06/18/2023 by Shant Cerna MD at [facility] Plate Left: Humerus Synthes I 241.923S / / Synthes 3.5mm 2.9mm 22mm Self Tap Lock Stardrive Conical Head T15 Full 212.107 - [id number] Implanted:Qty: 1 on 06/18/2023 by Shant Cerna MD at [facility] Screw Left: Humerus Synthes I 212.107 / / Synthes 3.5mm 2.9mm 50mm Self Tap Lock [employer] Conical Head T15 Full 212.121 - [id number] Implanted:Qty: 1 on 06/18/2023 by Shant Cerna MD at [facility] Screw Left: Humerus Synthes I 212.121 / / Synthes 3.5mm 2.9mm 44mm Self Tap Lock [employer] Conical Head T15 Full 212.134 - [id number] Implanted:Qty: 2 on 06/18/2023 by Shant Cerna MD at [facility] Screw Left: Humerus Synthes I 212.134 / / Synthes 3.5mm 2.9mm 24mm Self Tap Lock [employer] Conical Head Pelvis T15 212.108 - [id number] Implanted:Qty: 1 on 06/18/2023 by Shant Cerna MD at [facility] Screw Left: Humerus Synthes I 212.108 / / Synthes 3.5mm 6mm 22mm 2.5mm Self Tap Small Hexagonal Socket Low Profile 204.822 - [id number] Implanted:Qty: 1 on 06/18/2023 by Shant Cerna MD at [facility] Screw Left: Humerus Synthes I 204.822 / / Synthes 2.7mm 5mm 20mm 2.5mm Self Tap Spherical Head Small Hexagonal 202.820 - [id number] Implanted:Qty: 1 on 06/18/2023 by Shant Cerna MD at [facility] Screw Left: Humerus Synthes I 202.820 / / Synthes 3.5mm 6mm 24mm 2.5mm Self Tap Small Hexagonal Socket Low Profile 204.824 - [id number] Implanted:Qty: 1 on 06/18/2023 by Shant Cerna MD at [facility] Screw Left: Humerus Synthes I 204.824 / / Synthes 3.5mm 6mm 28mm 2.5mm Self Tap Small Hexagonal Socket Low Profile 204.828 - [id number] Implanted:Qty: 1 on 06/18/2023 by Shant Cerna MD at [facility] Screw Left: Humerus Synthes I 204.828 / / Synthes 3.5mm 2.9mm 46mm Self Tap Lock [employer] Conical Head T15 Full 212.136 - [id number] Implanted:Qty: 2 on 06/18/2023 by Shant Cerna MD at [facility] Screw Left: Humerus Synthes I 212.136 / / Synthes 3.5mm 2.9mm 48mm Self Tap Lock Fix Angle Low Profile Pelvis Full 212.120 - [id number] Implanted:Qty: 3 on 06/18/2023 by Shant Cerna MD at [facility] Screw Left: Humerus Synthes I 212.120 / / Synthes 3.5mm 2.9mm 32mm Self Tap Lock [employer] Conical Head T15 Full 212.112 - [id number] Implanted:Qty: 1 on 06/18/2023 by Shant Cerna MD at [facility] Screw Left: Humerus Synthes I 212.112 / / [employer] Matrix Tissue Alloderm Select Thk.4-2.4 Mm Thick L16 Cm X W8 Cm Allograft Regenerative [id number] - [id number] Implanted:Qty: 1 on 08/08/2021 by Prosper Nolen MD at [facility] Right: Breast [employer] 03/21/2023 [id number] / / [id number] Explanted Type [facility] Worker Device Identifier Shelf Expiration Date Model / Serial / Lot [employer] Implant Mammary Natrelle Te Smooth 611l-Jf-65-T With Fourte 636v-Of-16-T - [id number] - [id number] Implanted:Qty : 1 on 08/08/2021 by Prosper Nolen MD at [facility] Explanted:Qty : 1 on 01/09/2022 by Prosper Nolen MD at [facility] Right: Breast [employer] [id number] 11/04/2024 133S-MX-1 5-T / [id number] / Procedures Procedure Name Priority Date/Time Associated Diagnosis Comments XR HUMERUS LEFT 2 OR MORE VIEWS Schedule Routine, Read Routine (OP Routine) 01/24/2024 10:22 AM GROUP TESTER Closed fracture of proximal end of left humerus with routine healing, unspecified fracture morphology, subsequent encounter Closed torus fracture of proximal end of left humerus with routine healing, subsequent encounter SCREENING MAMMOGRAM LEFT W DEMARCUS UNILATERAL ONLY Schedule Routine, Read Routine (OP Routine) 07/13/2023 9:39 AM CDT History of breast cancer Encounter for screening mammogram for malignant neoplasm of breast from Last 3 Months or Most Recently Relevant to Health Maintenance Results * XR Humerus Left 2 or More Views (01/24/2024 10:22 AM GROUP TESTER) Anatomical Region Laterality Modality Upper Extremities, Upper Arm Left Com puted Radiography 01/24/2024 11:3 5 AM GROUP TESTER Impressions 01/24/2024 12:43 PM GROUP TESTER Healing reduced and internally fixated left proximal humeral shaft fracture. Dictated by: Chapincito Villavicencio MD The radiology attending physician has personally reviewed this study, and had reviewed and/or edited this written report and agrees with it. Electronically signed by: Satya Simon D.O. Narrative 01/24/2024 12:43 PM GROUP TESTER EXAMINATION: XR HUMERUS LEFT 2 OR MORE VIEWS HISTORY: fracture follow-up COMPARISON: Radiograph from 10/25/2023 FINDINGS: 3 radiographs of the left humerus are submitted for interpretation. Healing reduced and internally fixated left proximal humeral shaft fracture transfixed by lateral screw and plate construct. Hardware is intact. No acute fracture. Procedure Note Satya Simon, DO - 01/24/2024 EXAMINATION: XR HUMERUS LEFT 2 OR MORE VIEWS HISTORY: fracture follow-up COMPARISON: Radiograph from 10/25/2023 FINDINGS: 3 radiographs of the left humerus are submitted for interpretation. Healing reduced and internally fixated left proximal humeral shaft fracture transfixed by lateral screw and plate construct. Hardware is intact. No acute fracture. IMPRESSION: Healing reduced and internally fixated left proximal humeral shaft fracture. Dictated by: Chapincito Villavicencio MD The radiology attending physician has personally reviewed this study, and had reviewed and/or edited this written report and agrees with it. Electronically signed by: Satya Simon D.O. Shant Cerna MD IMG XR PROCEDURES Final Result * Screening Mammogram Left W Demarcus Unilateral Only (07/13/2023 9:39 AM CDT) Anatomical Region Laterality Modality Breast Left Mammography Narrative 07/17/2023 12:26 PM CDT Mammogram Technique: Left Breast Digital Breast Tomosynthesis, Unilateral C-view 2D Screening mammogram. Views obtained: left craniocaudal and left mediolateral oblique. Computer Aided Detection was performed. Mammogram Findings: The present examination has been compared to prior imaging studies performed at [facility] on 05/04/2021, and at [facility] on 06/27/2021 and 07/10/2022. There are scattered areas of fibroglandular density. There is no suspicious abnormality in the left breast. Patient status post contralateral mastectomy for personal history of breast cancer. Impression: There is no mammographic evidence of malignancy. Annual screening mammography is recommended. OVERALL FINAL ASSESSMENT: BI-RADS CATEGORY 1: Negative. Procedure Note Fernanda Noyola MD - 07/17/2023 Mammogram Technique: Left Breast Digital Breast Tomosynthesis, Unilateral C-view 2D Screening mammogram. Views obtained: left craniocaudal and left mediolateral oblique. Computer Aided Detection was performed. Mammogram Findings: The present examination has been compared to prior imaging studies performed at [facility] on 05/04/2021, and at [facility] on 06/27/2021 and 07/10/2022. There are scattered areas of fibroglandular density. There is no suspicious abnormality in the left breast. Patient status post contralateral mastectomy for personal history ofbreast cancer. Impression: There is no mammographic evidence of malignancy. Annual screening mammography is recommended. OVERALL FINAL ASSESSMENT: BI-RADS CATEGORY 1: Negative. Alaina Olmso MD IMG MAMMO PROCEDURES Fi nal Result from Last 3 Months or Most Recently Relevant to Health Maintenance Insurance [employer] [facility] Address: [address] [address] [place] [id number] [employer] [facility] MEDICARE Address: [place] [id number] [place] [id number] [employer] H[employer] REF [facility] MEDICARE Address: [address] [address] [place] [phone] Care Teams Director Of Volunteer Services Relationship Specialty Start Date End Date Mason Amin MD [address] [place] [address] RD [place] [address] PCP - General Family Medicine 07/06/22
--- OUTSIDE RECORDS SUMMARY | 2024-03-28 00:24 | XMS_ITS | Encounter Summary ---
Author Organization [facility] Healthcare Address [address] [place] [address] Care Team Providers Care Fitter / Welder Name Role Phone Unavailable Primary Care Provider Unavailabl e Reason for Visit * Diagnostic Imaging (Routine) - Closed Specialty Diagnoses / Procedures Referred By Armida t Referred To Contact Procedures Breast Imaging Screening Outside Reference Bria Bernal NP Phone: tel: fax: Referral ID Status Reason Start Date Expiration Date Visits Re quested Visits Authorized [id number] Closed 06/21/2021 07/21/2022 1 1 Encounter Details Date Type Department Care Team (Late st Contact Info) Description 09/18/2017 Hospital Encounter [facility] [address] [place] [id number] Social History Tobacco Use Types Packs/Day Years Used Date Smoking Tobacco: Former Cigarettes 0.5 5 1 972 - 1976 Smokeless Tobacco: Never AUDIT-C Answer Date Recorded Q1: How often [...] on file 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 There will be no report generated by a [facility] Radiologist. Narrative [facility]MAMMO[facility] - 06/21/2021 9:15 PM CDT EXAMINATION: Images For Reference Purposes Only us Bria Bernal NP IMG MAMMO PROCEDURES Fin al Result [facility] documented in this encounter Visit Diagnoses Not on filedocumented in this encounter
--- OUTSIDE RECORDS SUMMARY | 2024-03-28 00:24 | XMS_ITS | Encounter Summary ---
Author Organization [facility] Healthcare Address [address] [place] [address] Care Team Providers Care Circular Saw Operator Name Role Phone Unavailable Primary Care Provider Unavailabl e Reason for Visit * Diagnostic Imaging (Routine) - Closed Specialty Diagnoses / Procedures Referred By Armida t Referred To Contact Procedures Breast Imaging Screening Outside Reference Bria Bernal NP Phone: tel: fax: Referral ID Status Reason Start Date Expiration Date Visits Re quested Visits Authorized [id number] Closed 06/21/2021 07/21/2022 1 1 Encounter Details Date Type Department Care Team (Late st Contact Info) Description 10/23/2018 Hospital Encounter [facility] [address] [place] [id number] Social History Tobacco Use Types Packs/Day Years [...] on file 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 There will be no report generated by a [facility] Radiologist. Narrative [facility]MAMMO[facility] - 06/21/2021 9:13 PM CDT EXAMINATION: Images For Reference Purposes Only us Bria Bernal NP IMG MAMMO PROCEDURES Fin al Result [facility] documented in this encounter Visit Diagnoses Not on filedocumented in this encounter
--- OUTSIDE RECORDS SUMMARY | 2024-03-28 00:24 | XMS_ITS ---
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 Past Plans No past plan information found. Radiation Treatments * No radiation treatments are documented for this patient in [facility]. Treatments may have been administered in another system. Lifetime Dose Tracking * Chemical Lifetime Dose Automatic Entry Manual Entr y Fluoro Time 0.773 minutes 0.773 minutes 0 minutes Air kerma at the reference point (Ka,r) 8.02 mGy 8 .02 mGy 0 mGy
--- OUTSIDE RECORDS SUMMARY | 2024-03-28 00:24 | XMS_ITS | Encounter Summary ---
Author Organization [facility] Healthcare Address [address] [place] [address] Care Team Providers Care Foundry Supervisor Name Role Phone Unavailable Primary Care Provider Unavailabl e Reason for Visit * Diagnostic Imaging (Routine) - Closed Specialty Diagnoses / Procedures Referred By Armida t Referred To Contact Procedures Breast Imaging Diagnostic Outside Reference Bria Bernal NP Phone: tel: fax: Referral ID Status Reason Start Date Expiration Date Visits Re quested Visits Authorized [id number] Closed 06/21/2021 07/21/2022 1 1 Encounter Details Date Type Department Care Team (Late st Contact Info) Description 09/25/2017 12:05 AM CDT Hospital Encounter [facility] Radiology [facility] [address] [place] [phone] Social History Tobacco Use Types Packs/Day Years [...] on file 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 Radiology. There will be no report generated by a [facility] Radiologist. Narrative [facility]_MAMMO[facility] - 06/21/2021 9:14 PM CDT EXAMINATION: Images For Reference Purposes Only us Bria Bernal FINANCIAL AID COORDINATOR IMG MAMMO PROCEDURES Fin al Result [facility] documented in this encounter Visit Diagnoses Not on filedocumented in this encounter
--- OUTSIDE RECORDS SUMMARY | 2024-03-28 00:24 | XMS_ITS | Encounter Summary ---
Author Organization [facility] Healthcare Address [address] [place] [address] Care Team Providers Care Tool Trouble Shooter Name Role Phone Unavailable Primary Care Provider Unavailabl e Reason for Visit * Diagnostic Imaging (Routine) - Closed Specialty Diagnoses / Procedures Referred By Contcarla t Referred To Contact Procedures Breast Imaging US Outside Reference Bria Bernal NP Phone: tel: fax: Referral ID Status Reason Start Date Expiration Date Visits Re quested Visits Authorized [id number] Closed 06/21/2021 07/21/2022 1 1 Encounter Details Date Type Department Care Team (Late st Contact Info) Description 09/25/2017 Hospital Encounter [facility] Radiology [facility] [address] [place] [id number] Social History Tobacco Use Types Packs/Day Years [...] on file 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 There will be no report generated by a [facility] Radiologist. Narrative RAD_MAMMO[facility] - 06/21/2021 9:14 PM CDT EXAMINATION: Images For Reference Purposes Only us Bria Bernal NP IMG MAMMO PROCEDURES Fin al Result [facility] documented in this encounter Visit Diagnoses Not on filedocumented in this encounter
--- OUTSIDE RECORDS SUMMARY | 2024-03-28 00:25 | XMS_ITS | Clinical Summary ---
Author Organization [facility] Address [address] [place] [address] Care Team Providers Care Roof Foreman Name Role Phone Santos Amin MD Primary Care Provider Source Comments [facility],non-owned Affiliates and Associated Physician Practices is amultiple site organization consisting of ambulatory clinics and hospital sitesin [place], [place], [place] and [place]. This disclosure is being madepursuant to the Care Everywhere program and may not contain all information available regarding this patient. Last updated 17.[facility] Active Problems Problem Noted Date Diagnosed Date Fatty liver 08/07/2023 Overview (08/08/2023): 08/07/23 Fibroscan CAP 250, LSM 4.7 kPa Elevated liver enzymes 08/07/2023 Social History Tobacco Use Types Packs/Day Years Used Date Smoking Tobacco: Never Assessed Sex and Gender Information Value Date Recorded Sex Assigned at Not on file Gender Identity Not on file Sexual Orientation Not on file Plan of Treatment Health Maintenance Due Date Last Done Comments BONE DENSITY TESTING 1955 COLOGUARD (AGES 45-75) - COLON CA SCREENING 1954 COLON MONITORING 1954 COLONOSCOPY - COLON CA SCREENING 1954 CT COLONOGRAPHY - COLON CA SCREENING 1954 Colorectal Cancer Screening 1954 FIT - COLON CA SCREENING 1954 FLEX SIG - COLON CA SCREENING 1954 LIPID TESTING 1954 HEPATITIS C SCREENING 02/12/1972 DTAP/TDAP/TD VACCINES (1 - Tdap) 1973 PNEUMOCOCCAL VACCINE 50+ (1 of 1 - PCV) 02/17/2004 ZOSTER VACCINE (1 of 2) 02/17/2004 COVID-19 VACCINE (1 - 2023- season) 2023 INFLUENZA VACCINE (#1) 2023 11/19/2021, 2015 DEPRESSION SCREENING 02/20/2024 MEDICARE AWV CALENDAR YEAR 2024 MAMMOGRAM 07/12/2025 07/13/2023, 06/20, 07/10/2022, Additional history exists Respiratory Syncytial Virus (RSV) Vaccine Pt: or over 60 yrs (1 - 1-dose 75+ series) 2029 HEPATITIS B VACCINE Aged Out No longe r eligible based on patient's age to complete this topic HIB VACCINE Aged Out No longer eligi ble based on patient's age to complete this topic HPV VACCINE Aged Out No longer eligi ble based on patient's age to complete this topic MENINGOCOCCAL (Group B) VACCINE Aged Out No longer eligible based on patient's age to complete this topic MENINGOCOCCAL VACCINE Aged Out No ninoska azul eligible based on patient's age to complete this topic Care Teams Roof Foreman Relationship Specialty Start Date End Date Santos Amin MD [address] [place] [address] PCP - General Internal Medicine 08/07/23
--- OUTSIDE RECORDS SUMMARY | 2024-03-28 00:25 | XMS_ITS | Referral Summary ---
Author Organization [facility] Address [address] [place] [phone] Care Team Providers Care Burn Crew Member Name Role Phone Mason Amin MD Primary Care Provider [phone] Encounters Date Type Department Care Team Description 01/24/2024 10:00 AM TUBULAR RIVETER - 01/24/2024 11:59 PM TUBULAR RIVETER Hospital Encounter [facility] Radiology [facility]) [address] [place] [phone] Closed fracture of proximal end of left humerus with routine healing, unspecified fracture morphology, subsequent encounter; Closed torus fracture of proximal end of left humerus with routine healing, subsequent encounter Discharge Disposition: Discharge to home or self care 01/24/2024 10:10 AM TUBULAR RIVETER Office Visit [facility] [address] [place] [address] Advanced Medicine [address]th [place] [address] [place] [address] Shant Cerna MD Closed fracture of proximal end of left humerus with routine healing, unspecified fracture morphology, subsequent encounter (Primary Dx); Closed torus fracture of proximal end of left humerus with routine healing, subsequent encounter from Last 3 Months Allergies Active Allergy Reactions Criticality Noted Date [...] (12/09/2021): Added automatically from request for surgery [id number] Hearing loss 09/09/2021 Malignant neoplasm of breast 08/15/2021 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 Abnormal mammogram 06/27/2021 Osteopenia 06/27/2021 Calcification of breast 05/18/2021 Hemochromatosis 10/12/2015 Immunizations Name Administration Dates Next Due Influenza, Quadrivalent, Hig h Dose, Preservative Free, Intrr 01/23/2020 Influenza, Unspecified 10/12/2015 ZOSTER LIVE 10/12/2015 Social History Tobacco Use Types Packs/Day Years Used Date Smoking Tobacco: Former Cigarettes 0.5 5 1 972 - 1976 Smokeless Tobacco: Never Tobacco Cessation:Counseling Given: [...] on file Legal Sex Female 1:40 AM TUBULAR RIVETER Gender Identity Not on file Sexual Orientation Not on file Last Filed Vital Signs Vital Sign Reading [...] 07/13/2023 9:12 AM CDT Plan of Treatment Not on file Medical Devices Implanted Type Area Name Plate Stamping Machine Operator Device Identifier Shelf Expiration Date Model / Serial / Lot [employer] Natrelle Inspira Smooth Shell Surface Extra Full Profile Implant Latex Free Ssx-750 - [id number] - [id number] Implanted:Qty: 1 on 01/09/2022 by Prosper Nolen MD at [facility] Breast Right: Breast [employer] 05/29/2025 SSX-750 / [id number] / Synthes Plate Bone Lcp Combi Philos Long Stainless Steel L232mm X W12mm X H3.7mm Humerus Proximal 10 Hole Shaft Sterile 3.5mm Screw Small Fragment Set 241.923s - [id number] Implanted:Qty: 1 on 06/18/2023 by Shant Cerna MD at [facility] Plate Left: Humerus Synthes I 241.923S / / Synthes 3.5mm 2.9mm 22mm Self Tap Lock Stardrive Conical Head T15 Full 212.107 - [id number] Implanted:Qty: 1 on 06/18/2023 by Shant Cerna MD at [facility] Screw Left: Humerus Synthes I 212.107 / / Synthes 3.5mm 2.9mm 50mm Self Tap Lock Stardrive Conical Head T15 Full 212.121 - [id number] Implanted:Qty: 1 on 06/18/2023 by Shant Cerna MD at [facility] Screw Left: Humerus Synthes I 212.121 / / Synthes 3.5mm 2.9mm 44mm Self Tap Lock Stardrive Conical Head T15 Full 212.134 - [id number] Implanted:Qty: 2 on 06/18/2023 by Shant Cerna MD at [facility] Screw Left: Humerus Synthes I 212.134 / / Synthes 3.5mm 2.9mm 24mm Self Tap Lock Stardrive Conical Head Pelvis T15 212.108 - [id number] Implanted:Qty: 1 on 06/18/2023 by Shant Cerna MD at [facility] Screw Left: Humerus Synthes I 212.108 / / Synthes 3.5mm 6mm 22mm 2.5mm Self Tap Small Hexagonal Socket Low Profile 204.822 - [id number] Implanted:Qty: 1 on 06/18/2023 by Shant Cerna MD at [facility] Screw Left: Humerus Synthes I 204.822 / / Synthes 2.7mm 5mm 20mm 2.5mm Self Tap Spherical Head Small Hexagonal 202.820 - [id number] Implanted:Qty: 1 on 06/18/2023 by Shant Cerna MD at [facility] Screw Left: Humerus Synthes I 202.820 / / Synthes 3.5mm 6mm 24mm 2.5mm Self Tap Small Hexagonal Socket Low Profile 204.824 - [id number] Implanted:Qty: 1 on 06/18/2023 by Shant Cerna MD at [facility] Screw Left: Humerus Synthes I 204.824 / / Synthes 3.5mm 6mm 28mm 2.5mm Self Tap Small Hexagonal Socket Low Profile 204.828 - [id number] Implanted:Qty: 1 on 06/18/2023 by Shant Cerna MD at [facility] Screw Left: Humerus Synthes I 204.828 / / Synthes 3.5mm 2.9mm 46mm Self Tap Lock Stardrive Conical Head T15 Full 212.136 - [id number] Implanted:Qty: 2 on 06/18/2023 by Shant Cerna MD at [facility] Screw Left: Humerus Synthes I 212.136 / / Synthes 3.5mm 2.9mm 48mm Self Tap Lock Fix Angle Low Profile Pelvis Full 212.120 - [id number] Implanted:Qty: 3 on 06/18/2023 by Shant Cerna MD at [facility] Screw Left: Humerus Synthes I 212.120 / / Synthes 3.5mm 2.9mm 32mm Self Tap Lock Stardrive Conical Head T15 Full 212.112 - [id number] Implanted:Qty: 1 on 06/18/2023 by Shant Cerna MD at [facility] Screw Left: Humerus Synthes I 212.112 / / Aller[employer] Matrix Tissue Alloderm Select Thk.4-2.4 Mm Thick L16 Cm X W8 Cm Allograft Regenerative [id number] - [id number] Implanted:Qty: 1 on 08/08/2021 by Prosper Nolen MD at [facility] Right: Breast [employer] 03/21/2023 [id number] / / [id number] Explanted Type Area Name Plate Stamping Machine Operator Device Identifier Shelf Expiration Date Model / Serial / Lot Allergan [employer] Implant Mammary Natchristiee Te Smooth 534s-Eq-40-T With Fourte 927i-Oa-03-T - [id number] - [id number] Implanted:Qty : 1 on 08/08/2021 by Prosper Nolen MD at [facility] Explanted:Qty : 1 on 01/09/2022 by Prosper Nolen MD at [facility] Right: Breast EdPuzzleabiola MD Lingo [id number] 11/04/2024 133S-MX-1 5-T / [id number] / Procedures Procedure Name Priority Date/Time Associated Diagnosis Comments XR HUMERUS LEFT 2 OR MORE VIEWS Schedule Routine, Read Routine (OP Routine) 01/24/2024 10:22 AM TUBULAR RIVETER Closed fracture of proximal end of left [...] 2 or More Views (01/24/2024 10:22 AM TUBULAR RIVETER) Anatomical Region Laterality Modality Upper Extremities, Upper Arm Left Com puted Radiography 01/24/2024 11:3 5 AM TUBULAR RIVETER Impressions 01/24/2024 12:43 PM TUBULAR RIVETER Healing reduced and internally fixated left proximal humeral shaft fracture. Dictated by: Chapincito Villavicencio MD The radiology attending physician has personally reviewed this study, and had reviewed and/or edited this written report and agrees with it. Electronically signed by: Satya Simon D.O. Narrative 01/24/2024 12:43 PM TUBULAR RIVETER EXAMINATION: XR HUMERUS LEFT 2 OR MORE VIEWS HISTORY: fracture follow-up COMPARISON: Radiograph from 10/25/2023 FINDINGS: 3 radiographs of the left humerus are submitted for interpretation. Healing reduced and internally fixated left proximal humeral shaft fracture transfixed by lateral screw and plate construct. Hardware is intact. No acute fracture. Procedure Note Satya Simon, - 01/24/2024 EXAMINATION: XR HUMERUS LEFT 2 [...] compared to prior imaging studies performed at [facility] on 05/04/2021, and at [facility] on 06/27/2021 and 07/10/2022. There are scattered [...] compared to prior imaging studies performed at [facility] on 05/04/2021, and at [facility] on 06/27/2021 and 07/10/2022. There are scattered areas of fibroglandular density. There is no suspicious abnormality in the left breast. Patient status post contralateral mastectomy for personal history ofbreast cancer. Impression: There is no mammographic evidence of malignancy. Annual screening mammography is recommended. OVERALL FINAL ASSESSMENT: BI-RADS CATEGORY 1: Negative. Alaina Olmos MD IMG MAMMO PROCEDURES Fi nal Result from Last 3 Months or Most Recently Relevant to Health Maintenance Insurance MEDICARE SOLUTIONS MEDICARE SOLUTIONS [place] [id number] [facility] MDCR HMO REF Care Teams Burn Crew Member Relationship Specialty Start Date End Date Mason Amin MD [address] [place] [address] PCP - General Family Medicine 07/06/22
--- OUTSIDE RECORDS SUMMARY | 2024-03-28 00:25 | XMS_ITS | Referral Summary ---
Author Organization [facility] Address [address] [place] [address] Care Team Providers Care Peanut Blancher Name Role Phone Santos Amin MD Primary Care Provider [phone] Source Comments [facility],non-owned Affiliates and Associated Physician Practices is amultiple site organization consisting of ambulatory clinics and hospital sitesin [place], [place], [place] and [place]. This disclosure is being madepursuant to the Care Everywhere program and may not contain all information available regarding this patient. Last updated 17.[facility] [employer] Active Problems Problem Noted Date Diagnosed Date Fatty liver 08/07/2023 Overview (08/08/2023): 08/07/23 Fibroscan CAP 250, LSM 4.7 kPa Elevated liver enzymes 08/07/2023 Social History Tobacco Use Types Packs/Day Years Used Date Smoking Tobacco: Never Assessed Sex and Gender Information Value Date Recorded Sex Assigned at Not on file Gender Identity Not on file Sexual Orientation Not on file Plan of Treatment Not on file Care Teams Peanut Blancher Relationship Specialty Start Date End Date Santos Amin MD [address] [place] [address] PCP - General Internal Medicine 08/07/23
--- OUTSIDE RECORDS SUMMARY | 2024-03-28 00:25 | XMS_ITS | Patient Health Summary ---
Author Organization [facility] Address [address] [place] [address] Care Team Providers Care Supervisor Cook House Name Role Phone Santos Amin MD Primary Care Provider Note from [facility],non-owned Affiliates and Associated Physician Practices is amultiple site organization consisting of ambulatory clinics and hospital sitesin [place], [place]. This disclosure is being madepursuant to the Care Everywhere program and may not contain all information available regarding this patient. Last updated 17.[facility] Active Problems Problem Noted Date Diagnosed Date Fatty liver 08/07/2023 Elevated liver enzymes 08/07/2023 Social History Tobacco Use Types Packs/Day Years Used Date Smoking Tobacco: Never Assessed Sex and Gender Information Value Date Recorded Sex Assigned at Not on file Gender Identity Not on file Sexual Orientation Not on file Procedures * OK LIVER ELASTOGRAPHY(Performed 08/07/2023) Performed for Fatty liver, Elevated liver enzymes Results * OK LIVER ELASTOGRAPHY (08/07/2023 9:38 AM CDT) Narrative Bo Luther MD - 08/07/2023 9:38 AM CDT Bo Luther MD 08/08/2023 10:05 AM Diagnosis: Fatty Liver, LISA RN verified patient NPO for prior 3 hours. Procedure explained. Date of Exam: 08/07/2023 Liver Stiffness: (LSM, kPa) median: 4.7 IQR/Median% (ideally < 30%): 11% CAP (controlled attenuation parameter): 250 Technical Difficulty: None Ordering Provider: ANMOL Kasper Phone Fax Fibroscan interpretation: I have personally reviewed the Fibroscan report and associated tracings. The calculated Liver Stiffness Measurement (LSM, kPa) indicates that: The probability of advanced liver fibrosis is: low. The loss of ultrasound signal, (controlled attenuation parameter, CAP [dB/m]), indicates that the probability of hepatic steatosis is: moderate. Bo Goncalves MD The following criteria are used to indicate the probability of advanced (stage 3-4) fibrosis: < 7.0 kPa: low 7.0-8.9 kPa: low to moderate 9.0-14.9 kPa: moderate 15-20 kPa: high > 20 kPa: very high Liver stiffness > 20 kPa is also associated with a high probability of complications of portal hypertension including varices and ascites. Liver stiffness > 50 kPa is associated with a high risk of variceal bleeding. These interpretations are based on the following published data: Violette PJ, Sandoval M, Elena M, et al. Accuracy of FibroScan controlled attenuation parameter and liver stiffness measurement in assessing steatosis and fibrosis in patients with nonalcoholic fatty liver disease. Gastroenterology 2019;156:2149-2210. Lakeisha VIGIL, Mikayla R, Van Natta ML, et al. Vibration-controlled transient elastography to assess fibrosis and steatosis in patients with nonalcoholic fatty liver disease. Clin Gastroenterol Hepatol 2019;17:156-163. Note that scores have been developed that incorporate the Fibroscan liver stiffness measurement from large cohorts of patients with liver biopsies to further refine the ability of Fibroscan to identify patients with MASH and advanced fibrosis. These include the FAST (Fibroscan-AST) score (Ayesha, 2022) and the Agile3+ and Agile4 scores (Gordon, 202). Ayesha TA, Van Natta ML, Shabnam M, Claudio A, et al. Validation of the accuracy of the FAST score for detecting patients with at-risk nonalcoholic steatohepatitis (LOERA) in a [place] cohort and comparison to other non-invasive algorithms. PLoS ONE (2021) 17: [id number]. Gordon HERNDON, Iron J, Theodora TRIMBLE, et al. Enhanced diagnosis of advanced fibrosis and cirrhosis in individuals with NAFLD using FibroScan-based Agile scores. J Hepatol (2022) 78: 247-259. Fibroscan LSM can also be used with laboratory parameters without formulas to assess prognosis. According to the Baveno-VII criteria (de Franchis, 2022), Fibroscan LSM ?15 kPa plus a platelet count of ?[id number]/L rules out clinically significant portal hypertension (sensitivity and negative predictive value >90%) in patients with compensated advanced chronic liver disease. Urrutia R, Geovanna Mathews, Hernandez G, Radha T, Bertha Paniagua on behalf of the [facility] Faculty. [facility]--Renewing consensus in portal hypertension. J Hepatol (2021) 76: 959-974 Assessing the likelihood of advanced fibrosis in patients with intermediate liver stiffness measurement (LSM) by Fibroscan (e.g., 8-15 kPa) can be improved by also calculating the FIB-4 score (Rachele et al. Hepatology Communications 2019;3:1621-8561) or NAFLD Fibrosis score (Jolley et al. Clinical Gastroenterology and Hepatology 2019;17:1170-4350 using routine clinical data. Note: 1. Fibroscan cannot reliably identify earlier stages of fibrosis (ie distinguish F0 from F1 and F2) and thus a histologic stage cannot be predicted from the Fibroscan reading. 2. Liver stiffness can be increased by factors other than fibrosis including passive congestion, infiltrative processes, active alcoholism, recent moderate alcohol consumption in the 2 weeks before the exam, biliary obstruction and marked inflammation. The interpretation of the Fibroscan result provided above may not have taken such clinical factors into account. Disease etiology also influences Fibroscan cutoff values for fibrosis stages and the following cutoffs have been proposed (Theron et al, Clin Gastro Hepatol 2015; 13:27-36): Cutoffs for Stage 3 and Stage 4 fibrosis respectively: Hepatitis B: >9 and >11.7 kPa Hepatitis C: >9.5 and >12.5 kPa HCV-HIV: >11 and >14 kPa Cholestatic liver diseases: >10 and >17.9 kPa MASLD/MASH: >10 and >14 kPa CAP estimates of steatosis: normal <200 dB/m mild 200 to 250 dB/m moderate 250-290 dB/m substantial > 290 dB/m (Note that Fibroscan is not a quantitative measure of liver fat.) These criteria are estimates and may change as additional supporting data becomes available. (This additional interpretive data was last updated 06/24/22.) [email or web address] Anushka Dale ORTHOTICS PROSTHETICS TECHNICIAN-NURSE'S ASSISTANT PROCEDURE/MINOR ARACELIS GICAL ORDERABLES Care Teams Supervisor Cook House Relationship Specialty Start Date End Date Santos Amin MD [address] [place] [id number] PCP - General Internal Medicine 08/07/23
[2024-03-28 12:25] VITALS: BP 159/88; PULSE 83; RESP 18; TEMP 35.9; O2SAT 98; BMI 26.5
--- NOTE | 2024-03-28 13:07 | WPDANESEPPF ---
Anes - Initial Pre Proc Eval Procedure: Operation Date: 03/28/24 13:00 Proposed Procedures p Colonoscopy - Keith Desir MD Date/Time: 03/28/24 13:07 Surgeon: Keith Desir MD Pre Op Diagnosis: Fecal abnormalities Patient Data Age: 69 Gender: F Height: 1.78 m Weight: 83.9 kg Last Vital Signs Temp 35.9 C L 03/28/24 12:25 Pulse 83 03/28/24 12:25 Resp 18 03/28/24 12:25 BP 159/88 H 03/28/24 12:25 Pulse Ox 98 03/28/24 12:25 O2 Del Method Room Air 03/28/24 12:25 Allergies Allergy/AdvReac Type Severity Reaction Status Date / Time Sulfa (Sulfonamide Allergy Mild HIVES Verified 03/28/24 12:32 Antibiotics) Home Medications ?Medication ?Instructions ?Recorded ?Confirmed ?Type cholecalciferol (vitamin D3) 25 25 mcg PO WEEKLY 05/16/23 03/28/24 History mcg (1,000 unit) capsule cyanocobalamin (vitamin B-12) 1,000 mcg PO DAILY 05/16/23 03/28/24 History 1,000 mcg capsule omeprazole 20 mg capsule,delayed 20 mg PO DAILY #30 caps 05/30/23 03/28/24 Rx release hydrocodone 5 mg-acetaminophen 325 1 tablet PO Q6H PRN pain #30 tabs 06/12/23 03/21/24 Rx mg tablet Patient hx anesthesia problems: none Family hx anesthesia problems: none Results Review: All pre-operative results and documents have been reviewed as part of the pre-operative evaluation. [facility] Past Medical History Medical History Hiatal hernia History of breast cancer History of difficult intubation Right upper quadrant pain Fatty liver Elevated transaminase level Surgical History Surgical History Hx of tonsillectomy History of mastectomy History of appendectomy History of tubal ligation Family History Family History Mother Diabetes mellitus Father Hypertension Family history of cardiovascular disease Father Hypertension Family history of chronic obstructive pulmonary disease Family history of coronary artery disease Sibling Hypertension Mother Family history of congenital heart disease Family history of coronary artery disease Family history of type 2 diabetes mellitus Other Family history of heart disease in male family member before age 55 Social History Social History Years smoked: 5 Smoking status: Former smoker Tobacco type: cigarettes Second hand tobacco smoke exposure: No Smoking end date: 02/19/74 Alcohol intake: current Drinks per week: 4 Substance use: never Substance use type: does not use Living arrangements: with family Additional living arrangements comments: with sp Occupation/Education: retired 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[employer] Gender identity (if verbalized by the patient): Female Spiritual care concerns: No Anes - Eval Final PreProcedure Day of Procedure 03/28/24 13:07 Patient weight: overweight Heart: regular rate and rhythm Lungs: clear to auscultation Airway: Mallampati scale class II Neurological: alert and oriented Last oral intake: >/= 8 hours ASA classification: III Emergent: no Anesthetic plan: proceed Anesthesia type and monitoring: general GIVS and standard monitoring Results Review: All pre-operative results and documents have been reviewed as part of the pre-operative evaluation. Informed Consent: The patient's anesthetic plan and its attendant risks and benefits were discussed with the patient/family/POA. Questions were solicited and answers provided to the satisfaction of the patient/family/POA.
[2024-03-28] MEDS: LACTATED RINGERS 1,000 ML 150 ML IV CONT (13:16)
--- NOTE | 2024-03-28 13:33 | P.HP_ITS ---
H&P: HPI History of Present Illness Date/Time: 03/28/24 13:33 Chief Complaint: Positive Cologuard Narrative: this patient was referred for colonoscopy due to the the finding of positive Cologuard test. She has never had a colonoscopy and has no family history of colorectal cancer. He is asymptomatic from the GI standpoint. Review of Systems Review of Systems: All systems reviewed & are unremarkable except as noted in HPI and below PMFSH Past Medical History Medical History Hiatal hernia History of breast cancer History of difficult intubation Right upper quadrant pain Fatty liver Elevated transaminase level Surgical History Surgical History Hx of tonsillectomy History of mastectomy History of appendectomy History of tubal ligation Family History Family History Mother Diabetes mellitus Father Hypertension Family history of cardiovascular disease Father Hypertension Family history of chronic obstructive pulmonary disease Family history of coronary artery disease Sibling Hypertension Mother Family history of congenital heart disease Family history of coronary artery disease Family history of type 2 diabetes mellitus Other Family history of heart disease in male family member before age 55 Social History Social History Years smoked: 5 Smoking status: Former smoker Tobacco type: cigarettes Second hand tobacco smoke exposure: No Smoking end date: 02/19/74 Alcohol intake: current Drinks per week: 4 Substance use: never Substance use type: does not use Living arrangements: with family Additional living arrangements comments: with sp Occupation/Education: retired 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 (if verbalized by the patient): Female Spiritual care concerns: No Meds Home Medications and Allergies Home Medications ?Medication ?Instructions ?Recorded ?Confirmed ?Type cholecalciferol (vitamin D3) 25 25 mcg PO WEEKLY 05/16/23 03/28/24 History mcg (1,000 unit) capsule cyanocobalamin (vitamin B-12) 1,000 mcg PO DAILY 05/16/23 03/28/24 History 1,000 mcg capsule omeprazole 20 mg capsule,delayed 20 mg PO DAILY #30 caps 05/30/23 03/28/24 Rx release hydrocodone 5 mg-acetaminophen 325 1 tablet PO Q6H PRN pain #30 tabs 06/12/23 03/21/24 Rx mg tablet Allergies Allergy/AdvReac Type Severity Reaction Status Date / Time Sulfa (Sulfonamide Allergy Mild HIVES Verified 03/28/24 12:32 Antibiotics) Vital Signs Vital Signs - 24 hr 03/28/24 12:25 Temperature 96.7 F L Pulse Rate 83 Respiratory Rate 18 Blood Pressure 159/88 H Pulse Oximetry 98 Oxygen Delivery Room Air Exam Const: General: cooperative and healthy appearing Resp: Effort & Inspection: normal respiratory effort and able to speak in complete sentences Auscultation: clear to auscultation bilaterally Cardio: Rate: regular rate Rhythm: regular rhythm GI: Inspection: normal to inspection GI Palp: No No hepatosplenomegaly present Auscultation: normal bowel sounds Rectal Exam: deferred Skin: General skin exam: normal color Psych: Appearance: grossly normal Mental Status: mental status grossly normal Assessment and Plan Assessment and plan (1) Positive colorectal cancer screening using Cologuard test: Code(s): R19.5 - Other fecal abnormalities Status: Acute Assessment and Plan: The patient is deemed a good candidate for the procedure. Consent signed. Will proceed.
[2024-03-28] MEDS: SIMETHICONE ORAL SUSPENSION 20 MG/0.3 ML 30 ML BOTTLE 0.6 ML IRRIGATION (13:47)
[2024-03-28 14:01] VITALS: BP 166/93; PULSE 78; RESP 22; O2SAT 95
[2024-03-28 14:11] VITALS: BP 163/97; PULSE 73; RESP 20; O2SAT 95
[2024-03-28 14:21] VITALS: BP 168/91; PULSE 70; RESP 16; O2SAT 96
--- NOTE | 2024-03-28 14:37 | SUR.PHASEII ---
1411 - pt co slight abdominal pain, states feels gas like and is not severe. abdomen soft to touch. once pt up in chair, stated pain felt better. states she did do a 2 day prep and stomach hasn't felt well. went over s/s for her to report if pain worsens. voiced understanding.
== END 2024-03-28 14:35 | disposition home or self-care (01) ==
PROVIDERS: PCP Family Medicine; Visit Provider Internal Medicine Gastroenterology
PROC: 0DJD8ZZ Inspection of Lower Intestinal Tract, Via Natural or Artificial Opening Endoscopic (ICD-10-PCS; CPT 45378; principal; 2024-03-28 13:00)
DX: D12.2 Benign neoplasm of ascending colon (principal); K57.30 Diverticulosis of large intestine without perforation or abscess without bleeding; Z79.891 Long term (current) use of opiate analgesic; Z98.890 Other specified postprocedural states; Z98.84 Bariatric surgery status; Z87.891 Personal history of nicotine dependence; Z85.3 Personal history of malignant neoplasm of breast; Z82.49 Family history of ischemic heart disease and other diseases of the circulatory system
CPT/HCPCS: 45385; 88305; J2003; J2704; J7120

== ENCOUNTER 2024-06-30 14:52 | Outpatient (CLI) | payer MEDICARE, SELFPAY ==
--- NOTE | ~2024-06-30 | US_ITS ---
EXAMINATION: US pelvic complete DATE: 06/30/2024 15:27 INDICATION: Abnormal uterine and vaginal bleeding TECHNIQUE: Multiple transabdominal sonographic images of the pelvis were obtained. COMPARISON: None. FINDINGS: Uterus: 6.2 x 3.2 x 3.6 cm. Endometrial complex measures 5 mm. Right Ovary: Not visualized. No adnexal mass. Left Ovary: Not visualized. No adnexal mass. There is no free fluid in the pelvis. Question of urinary bladder wall thickening. IMPRESSION: Endometrial thickness of 5 mm. Consider endometrial sampling. Bilateral ovaries not visualized in this transabdominal pelvic ultrasound examination. Possible bladder wall thickening as can be seen with cystitis, correlate with urinalysis. Reviewed, dictated and finalized at location K. IMPRESSION: Endometrial thickness of 5 mm. Consider endometrial sampling. Bilateral ovaries not visualized in this transabdominal pelvic ultrasound exami [facility]. Possible bladder wall thickening as can be seen with cystitis, correlate with u rinalysis.
== END 2024-06-30 14:53 | disposition home or self-care (01) ==
LOC: MICIMG 14:53
PROVIDERS: PCP Family Medicine
DX: R93.89 Abnormal findings on diagnostic imaging of other specified body structures (principal); N93.9 Abnormal uterine and vaginal bleeding, unspecified
CPT/HCPCS: 76856

== ENCOUNTER 2024-07-18 10:52 | Outpatient (CLI) | payer MEDICARE, SELFPAY ==
--- NOTE | ~2024-07-18 | US_ITS ---
Pelvic ultrasound. Clinical History: Postmenopausal bleeding Technique: Realtime transabdominal and transvaginal scanning of the pelvis was performed. Color flow Doppler and Doppler spectral analysis were performed. Findings: The uterus is anteverted. The endometrial stripe has a thickness of 7 mm. No focal mass is identified. Neither ovary seen. No adnexal mass seen. There is no evidence of free fluid in the cul de sac. Impression: Borderline endometrial thickening. Consider additional evaluation for endometrial hyperplasia or poss ibly early neoplasm versus follow-up exam. Reviewed, dictated and finalized at location M. Impression: Borderline endometrial thickening. Consider additional evaluation for endometri al hyperplasia or possibly early neoplasm versus follow-up exam.
== END 2024-07-18 10:53 | disposition home or self-care (01) ==
PROVIDERS: PCP Nurse Practitioner Family; Visit Provider Nurse Practitioner Family
DX: N95.0 Postmenopausal bleeding (principal)
CPT/HCPCS: 76830; 76856

== ENCOUNTER 2024-09-12 00:02 | Day surgery (SDC) | payer MEDICARE, SELFPAY ==
[2024-09-05 14:40] VITALS: BMI 28.0
--- NOTE | 2024-09-05 15:00 | PC.NURSE ---
Report to the Outpatient Waiting Room, entrance under the green pavilion located off [facility], at time ___8:00AM____ on date ____09/12/24___. Planned Procedure Time: ___10:00AM .? Time changes happen often and if your time is changed the preop area will call you the afternoon before. - You and your visitor will be asked to self-screen and do not enter if you have any COVID symptoms. Please call surgeon if you need to reschedule. - A mask is optional within the hospital at this time. Patients may have clear liquids (water, carbonated beverages, clear teas, apple juice) until 3 hours prior to surgery (7:00AM) with a maximum of 20 ounces. - No food from midnight until time of surgery and no smoking, or chewing tobacco (or any form of nicotine). No chewing gum, candy or mints. Take only the following medications with a SIP of water on the morning of surgery: NONE DO NOT STOP ANY OF YOUR OTHER PRESCRIPTION MEDICATIONS PRIOR TO SURGERY EXCEPT THE FOLLOWING Hold all vitamins and supplements for 3 days per anesthesiologist.-LAST DOSE 09/08/24. Please no make-up, nail croatian, hairspray, perfume, deodorant, or body powder the day of surgery.? No jewelry (including any body piercings) or valuables the day of surgery, leave them at home.? Please take a shower or bath the night before, or the morning of, surgery with an antibacterial soap.? Wear comfortable, loose fitting clothing.? - Jewelry must be removed prior to entering the operating room.? Rings and piercings that are not removed may be cut off. - The hospital will not accept responsibility for valuables.? - Please leave all valuables, including medications, at home the day of surgery. If you are going home after surgery, a licensed milk wagon driver must drive you home.? - NO public transportation without another adult if you receive anesthesia. - We recommend that an adult stay with you for 24 hours following discharge. - We also recommend that you do not drive, make important decision, drink alcoholic beverages, or take any drugs that were not prescribed by your health care provider for at least 24 hours after your discharge time. Follow any additional instructions given to you from your surgeon. Telephone instructions given to ___PATIENT and asked if any additional questions and then verbalized understanding. Patient advised to call surgeon office or pre surgery nurse liaison [phone] if any additional questions.
[2024-09-12] MEDS: LACTATED RINGERS 1,000 ML 30 ML IV CONT (08:30)
[2024-09-12] MEDS: ACETAMINOPHEN 500 MG TABLET 1000 MG PO (08:57)
[2024-09-12 09:30] VITALS: BP 153/80; PULSE 72; RESP 16; TEMP 36.5; O2SAT 97
--- NOTE | 2024-09-12 10:33 | WPDHPUPDATE1 ---
History and Physical Update Update Date/Time: 09/12/24 10:33 History and Physical has been reviewed, including an updated exam of the patient. There are NO changes in the patient's condition. Risks, benefits, and alternatives have been discussed and questions answered. Patient agrees to proceed with procedure.
--- NOTE | 2024-09-12 11:08 | WPDANESEPPF ---
Anes - Initial Pre Proc Eval Procedure: Operation Date: 09/12/24 10:00 Proposed Procedures p Hysteroscopy, Dilation and Curettage, Possible Removal Endometrial Lesions if Necessary - Brandin De La Rosa MD Date/Time: 09/12/24 11:08 Surgeon: Brandin De La Rosa MD Pre Op Diagnosis: post menopausal bleeding, thick endometrial strip Patient Data Age: 69 Gender: F Height: 1.75 m Weight: 86.7 kg Last Vital Signs Temp 97.7 F 09/12/24 09:30 Pulse 72 09/12/24 09:30 Resp 16 09/12/24 09:30 BP 153/80 H 09/12/24 09:30 Pulse Ox 97 09/12/24 09:30 O2 Del Method Room Air 09/12/24 09:30 Allergies Allergy/AdvReac Type Severity Reaction Status Date / Time Sulfa (Sulfonamide Allergy Mild HIVES Verified 09/12/24 09:51 Antibiotics) Home Medications ?Medication ?Instructions ?Recorded ?Confirmed ?Type cyanocobalamin (vitamin B-12) 1,000 mcg PO DAILY 05/16/23 09/12/24 History 1,000 mcg capsule omeprazole 20 mg capsule,delayed 20 mg PO DAILY #30 caps 05/30/23 09/12/24 Rx release atorvastatin 10 mg tablet (Lipitor) 10 mg PO DAILY 06/25/24 09/12/24 History ergocalciferol (vitamin D2) 1,250 1,250 mcg PO WEEKLY 09/05/24 09/12/24 History mcg (50,000 unit) capsule Patient hx anesthesia problems: none Family hx anesthesia problems: none Results Review: All pre-operative results and documents have been reviewed as part of the pre-operative evaluation. [facility] Past Medical History Medical History Hiatal hernia History of breast cancer History of difficult intubation Right upper quadrant pain Fatty liver Elevated transaminase level Surgical History Surgical History Hx of tonsillectomy History of mastectomy History of appendectomy History of tubal ligation Family History Family History Mother Diabetes mellitus Father Hypertension Family history of cardiovascular disease Father Hypertension Family history of chronic obstructive pulmonary disease Family history of coronary artery disease Sibling Hypertension Mother Family history of congenital heart disease Family history of coronary artery disease Family history of type 2 diabetes mellitus Other Family history of heart disease in male family member before age 55 Social History Social History Years smoked: 5 Smoking status: Former smoker Tobacco type: cigarettes Second hand tobacco smoke exposure: No Smoking end date: 02/19/74 Alcohol intake: current Drinks per week: 4 Substance use: never Substance use type: does not use Living arrangements: with family Additional living arrangements comments: with sp Occupation/Education: retired 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 Informed Consent: The patient's anesthetic plan and its attendant risks and benefits were discussed with the patient/family/POA. Questions were solicited and answers provided to the satisfaction of the patient/family/POA.
[2024-09-12] MEDS: ceFAZolin 2 GM in SODIUM CHLORIDE 0.9% IV 50 ML 100 ML IVPB (11:14)
[2024-09-12] MEDS: LIDOCAINE 1% LOCAL INJ 10 ML VIAL INFILTRATE (11:24)
--- NOTE | 2024-09-12 11:30 | S_PTH ---
PATIENT: Juju Padilla LOC: [facility]#:[id number] AGE/SX: 69/F ROOM: RE09/12/[address]: Brandin De La Rosa MD : 1955 BED: DIS: 09/12/2024 SPEC #: [id number] RECD: 09/12/24 13:28 STATUS: CHANTAL REQ #: [id number] JOEY: 09/12/24 11:[address]: Brandin De La Rosa DEPT: [facility] Surgical RECD BY: Hanh Veras MLT, ([facility]) ENTERED: 09/12/24 13:28 SP TYPE: Surgical OTHR DR: Mason Amin, Tissues: A - Endometrial Curettings Procedures: Hematoxylin and Eosin Stain Gross and Microscopic Level 4
[2024-09-12 11:40] VITALS: BP 146/70; PULSE 67; RESP 16; O2SAT 100
--- NOTE | 2024-09-12 11:47 | W.PM.PROC2 ---
Procedure Note - Detailed Date of Procedure 09/12/24 Pre-op Diagnosis post menopausal bleeding, thick endometrial strip Post-op Diagnosis Other (Endometrial polyp) Procedure Performed Hysteroscopy dilation and curettage and removal of endometrial lesion. Surgeon Brandin De La Rosa MD Anesthesia MAC and Local Indications Postmenopausal bleeding, Findings Small endometrial polyp on posterior lower uterine wall, the rest of cavity atrophic. Description of Procedure After informed consent was obtained patient was taken to the operating room and adequate IV sedation was administered. Attention was turned to the vagina. Speculum was inserted. Single-tooth tenaculum placed on the anterior lip of the cervix. 10cc of 1% lidocaine was injected at cervicovaginal interface at 2,5,8,10 position. The uterus was sounded to 6 cm. The cervix was dilated to an 6Pratt dilator. The hysteroscope was inserted into the cavity. The findings were consistent with endometrial polyp. The hysteroscope was removed. The Aveta device was used to remove the polyp completely. A curettage was then performed with minimal tissue obtained. The hysteroscope was removed the single-tooth tenaculum was removed hemostasis was noted at the tenaculum site. Sponge count correct. The patient taken to recovery in stable condition. Estimated Blood Loss 5 Drains No Packing No Pathology Yes (Endometrial shavings and scant curettings.) Complications No immediate complications Condition Stable Disposition Same day [facility] Billing Surgery - Charge Forward: Surgery Billing
[2024-09-12 12:10] VITALS: BP 164/79; PULSE 62; RESP 16; O2SAT 94
== END 2024-09-12 12:38 | disposition home or self-care (01) ==
PROVIDERS: PCP Family Medicine; Visit Provider Obstetrics & Gynecology
PROC: 0U5B8ZZ Destruction of Endometrium, Via Natural or Artificial Opening Endoscopic (ICD-10-PCS; CPT 58563; principal; 2024-09-12 10:00)
DX: N95.0 Postmenopausal bleeding (principal); N84.0 Polyp of corpus uteri; Z87.891 Personal history of nicotine dependence
CPT/HCPCS: 58558; 88305; J0690; A9270; J1885; J2003; J2405; J2704; J3010; J7120

== ENCOUNTER 2024-09-26 12:41 | Outpatient (CLI) | payer MEDICARE, SELFPAY ==
--- NOTE | ~2024-09-26 | DEXA_ITS ---
Bone Density Report Name: AVNI KIRKLAND Age: 69 Sex: Female Ethnicity: White Date of : 1955 Indication: postmenopausal; screening for osteoporosis; height loss; cancer; Referring Provider: HOLLIS, [employer] [facility] [employer] Study: Bone densitometry was performed. Exam Date: September 26, 2024 Accession number: [id number] Bone Density: Region BMD T-score Z-score Classification AP Spine(L1-L4) 1.155 1.0 3.1 Normal Femoral Neck (Left) 0.727 -1.1 0.7 Osteopenia Total Hip (Left) 0.852 -0.7 0.8 Normal Femoral Neck (Right) 0.661 -1.7 0.1 Osteopenia Total Hip (Right) 0.871 -0.6 1.0 Normal Total Hip Mean 0.861 -0.7 0.9 Normal World Health Organization criteria for BMD impression classify patients as: Normal (T-score at or above -1.0), Osteopenia (T-score between -1.0 and -2.5), or Osteoporosis (T-score at or below -2.5). 10-year Fracture Risk(1): Major Osteoporotic Fracture 10% Hip Fracture 1.6% Reported Risk Factors: [place] (), Neck BMD=0.661, BMI=27.5 (1) FRAX(R) Version 3.08. Fracture probability calculated for an untreated patient. Fracture probability may be lower if the patient has received treatment. Previous Exams: Region Exam Age BMD T-score BMD Change BMD Change Date g/cm2 vs Baseline vs Previous AP Spine (L1-L4) 09/26/2024 69 1.155 1.0 0.033 (2.9%)* 0.019 (1.6%) 06/04/2021 66 1.136 0.8 0.014 (1.3%) 0.014 (1.3%) 08/19/2015 60 1.122 0.7 Total Hip(Left) 09/26/2024 69 0.852 -0.7 -0.052 (-5.8%) -0.023 (-2.6%) 06/04/2021 66 0.875 -0.6 -0.029 (-3.3%) -0.029 (-3.3%) 08/19/2015 60 0.904 -0.3 Total Hip(Right) 09/26/2024 69 0.871 -0.6 -0.075 (-7.9%) -0.048 (-5.3%) 06/04/2021 66 0.919 -0.2 -0.027 (-2.8%) -0.027 (-2.8%) 08/19/2015 60 0.946 0.0 *Denotes significance at 95% confidence level, LSC for AP Spine = 0.022 g/cm2, LSC for Total Hip = 0.027 g/cm2 Clinical Information Provided by Patient: Has used the following medications: Vitamin D Has the following medical conditions: Cancer Patient maximum height was 71 Menopause Age: 51 No regular weight bearing exercise Does not regularly consume dairy products Drinks caffeinated beverages Onset of menses at age 11 Number of children 2 Impression: The patient has low bone mass, based on the Right Femoral Neck T-score. The patient has an estimated ten-year risk of hip fracture of 1.6% and an estimated ten-year risk of major fracture of 10%, based on the WHO FRAX algorithm. The BMD for the Total Hip(Right) decreased, changing by -5.3% since the last DXA exam. Discussion: BONE DENSITY IS LOW AT ONE OR MORE SKELETAL SITES. This patient's lowest T-score is low at one or more skeletal sites. It meets the World Health Organization's (WHO) criteria for ?low bone mass? (T-score between -1.0 and -2.5). The patient's 10-year risk of fracture as calculated by FRAX is less than the threshold where pharmacological therapy is recommended by the National Osteoporosis Foundation (NOF). However, all treatment decisions require clinical judgment and consideration of individual patient factors, including patient preferences, comorbidities, previous drug use, risk factors not captured in the FRAX model (e.g., frailty, falls, vitamin D deficiency, increased bone turnover, interval significant decline in bone density) and possible under or overestimation of fracture risk by FRAX. The patient should follow a healthful lifestyle (good nutrition with adequate calcium and vitamin D, and appropriate weight-bearing exercise). Follow-Up: Consider repeating this study in 2 years to reassess this patient's status, or sooner if there is some new clinical indication. Reported by: JERE on 09/26/2024 1:22:00 PM. Reviewed, dictated and finalized at location A.
== END 2024-09-26 12:42 | disposition home or self-care (01) ==
LOC: ANHIMG 12:45
PROVIDERS: PCP Family Medicine; Visit Provider Family Medicine
DX: M85.852 Other specified disorders of bone density and structure, left thigh (principal); M85.851 Other specified disorders of bone density and structure, right thigh; Z78.0 Asymptomatic menopausal state
CPT/HCPCS: 77080